=== PATIENT | male | born 1980 | race Caucasian/White ===

== ENCOUNTER 2017-02-13 09:17 | Inpatient (IN) | payer OTHER ==
[~2017-02-13] VITALS: Ht 177.8 cm; Wt 77.0 kg
[~2017-02-13 09:17] MED LIST: ALBU8I INH; FOLI1 PO; LITH300 PO; NICO14DI18 TD; THIA100T PO; ZYVO600T PO
[2017-02-13 09:25] VITALS: BP 138/82; PULSE 89; RESP 16; TEMP 99.8
[2017-02-13] MEDS ORDERED: SODIUM CHLORIDE 0.9% FLUSH 10 ML FLUSH IVF PRN (09:45)
[2017-02-13] MEDS ORDERED: CLINDAMYCIN INJ 600 MG in SODIUM CHLORIDE 0.9% INJ 100 ML IV ONE (09:45)
[2017-02-13 10:16] LABS: AUTOMATED NEUTROPHIL # 15.1 TH/MM3 (1.8-7.7); BASOPHIL # 0.1 TH/MM3 (0-0.2); BASOPHIL % 0.4 % (0.0-2.0); HEMATOCRIT 48.9 % (39.0-51.0); LYMPH % 5.8 % (9.0-44.0); LYMPHOCYTE # 1.1 TH/MM3 (1.0-4.8); MEAN CORPUSCULAR HEMOGLOBIN 31.5 PG (27.0-34.0); MONO % 12.9 % (0.0-8.0); NEUT % 80.9 % (16.0-70.0); PLATELET COUNT 224 TH/MM3 (150-450); RED BLOOD COUNT 5.43 MIL/MM3 (4.50-5.90); RED CELL DISTRIBUTION WIDTH 14.5 % (11.6-17.2); WHITE BLOOD COUNT 18.7 TH/MM3 (4.0-11.0)
[2017-02-13 10:17] LABS: HEMO FLAGS AUTO DIFF
[2017-02-13] MEDS ORDERED: ACETAMINOPHEN 325 MG TAB PO ONE (10:30)
[2017-02-13 10:38] VITALS: TEMP 100.2
[2017-02-13 10:39] LABS: BICARBONATE 22.4 MEQ/L (21.0-32.0); POTASSIUM 3.8 MEQ/L (3.5-5.1)
[2017-02-13 10:50] LABS: BANDS 15 % (0-6); BASOPHILS 1 % (0-2); NEUTROPHIL # MANUAL DIFF 15.3 TH/MM3 (1.8-7.7); PLATELET ESTIMATE SMEAR NORMAL (NORMAL); PLATELET MORPHOLOGY NORMAL (NORMAL); POLYS (SEG NEUTROPHILS) 67 % (16-70); SCAN/DIFF FINAL DIFF MANUAL; WBC DIFF SAMPLE 100
--- NOTE | 2017-02-13 10:51 | RADRPT ---
EXAM DATE/TIME: 02/13/2017 10:37 [facility] COMPARISON: No previous studies available for comparison. INDICATIONS : Right side rib pain from fall off of skateboard. MEDICAL HISTORY : None. SURGICAL HISTORY : None. ENCOUNTER: Initial ACUITY: 1 day PAIN SCORE: 8/10 LOCATION: Right Ribs FINDINGS: No definite displaced rib fractures or pneumothorax is identified. CONCLUSION: No definite displaced rib fractures. Rosa East MD on February 13, 2017 at 10:49 Board Certified Radiologist. This report was verified electronically.
--- NOTE | 2017-02-13 11:06 | PD ---
HPI . Fall Chief Complaint: Injury Time Seen by Provider: 09:43 Travel History International Travel<30 days: No Contact w/Intl Traveler<30days: No Traveled to known affect area: No History of Present Illness HPI Patient presents complaining with right elbow and right rib pain following a fall last night. He states that he fell off the skateboard at about 11 PM. Patient states that his elbow pain is aching and constant and rates it as 8/10. He states that his rib pain is intermittent and he rates it as 7/10. He reports no obvious exacerbating or relieving factors. In addition to his right rib pain and his right elbow pain, he is complaining with multiple draining sores. He states that he is homeless and is prone to staph infections. PFSH Past Medical History Hx Anticoagulant Therapy: No Asthma: Yes Bipolar Disorder: Yes Anxiety: Yes Depression: Yes Cancer: No Cardiovascular Problems: No Chemotherapy: No Cerebrovascular Accident: No Diabetes: No Diminished Hearing: No Endocrine: No Gastrointestinal Disorders: No Genitourinary: No Hepatitis: Yes (C) Immune Disorder: No Implanted Vascular Access Dvce: No Musculoskeletal: No Neurologic: No Psychiatric: Yes Reproductive: No Respiratory: Yes (smoker, denies asthma. Uses albuterol) Integumentary: Yes (cellulitis left elbow) Immunizations Current: Yes Migraines: No Seizures: No Tetanus Vaccination: Unknown Past Surgical History Abdominal Surgery: No Hysterectomy: No Other Surgery: No Social History Alcohol Use: No Tobacco Use: Yes Substance Use: Yes (pt shoots up. many track pineda on arms) Allergies-Medications (Allergen,Severity, Reaction): Coded Allergies: Toradol (Verified Adverse Reaction, Intermediate, HIVES, 04/18/16) Tramadol (Verified Adverse Reaction, Intermediate, HIVES, 04/18/16) *MDRO Multi-Drug Resistant Organism (Verified Adverse Reaction, Unknown, ) MRSA (back wound) - 06/2015 MRSA (leg wound) - 08/2015 MRSA (knee wound) - 03/2016 Reported Meds & Prescriptions Reported Meds & Active Scripts Active Review of Systems Except as stated in HPI: all other systems reviewed are Neg General / Constitutional: Positive: Fever, Chills Cardiovascular: Positive: Chest Pain or Discomfort Respiratory: No: Shortness of Breath Musculoskeletal: Positive: Arthralgias Skin: Positive Lesions Physical Exam Narrative Vital Signs Date Time Temp Pulse Resp B/P Pulse Ox O2 Delivery O2 Flow Rate FiO2 02/13/17 10:38 100.2 02/13/17 09:42 16 93 Room Air 02/13/17 09:25 99.8 89 16 138/82 GENERAL: Patient is awake and alert. SKIN: Warm and dry. Right elbow is erythematous and warm to the touch. There is some serous drainage. He has numerous other source scattered over his body. Most of them are scabbed. There is some purulent drainage oozing from under some of the scabs. HEAD: Atraumatic. Normocephalic. EYES: Pupils equal and round. Extraocular movements are intact. ENT: No nasal bleeding or discharge. Mucous membranes pink and moist. NECK: Trachea midline. Neck is supple. CARDIOVASCULAR: Regular rate and rhythm. Heart sounds are normal. RESPIRATORY: No accessory muscle use. Lungs are clear with full air movement throughout. He does have some anterior lateral chest wall tenderness. There is no crepitus. I don't see any bruises or abrasions on his chest all. GASTROINTESTINAL: Abdomen soft, non-tender, nondistended. MUSCULOSKELETAL: No obvious deformities. No edema. Tender right elbow. However, this seems to be more skin than joint. NEUROLOGICAL: Awake and alert. No obvious cranial nerve deficits. Motor grossly within normal limits. Normal speech. PSYCHIATRIC: Appropriate mood and affect; insight and judgment normal. Data Data Last Documented VS Vital Signs Date Time Temp Pulse Resp B/P Pulse Ox O2 Delivery O2 Flow Rate FiO2 02/13/17 10:38 100.2 02/13/17 09:42 16 93 Room Air 02/13/17 09:25 89 138/82 Orders Basic Metabolic Panel (Bmp) (02/13/17 09:43) Complete Blood Count With Diff (02/13/17 09:43) Blood Culture (02/13/17 09:43) Iv Access Insert/Monitor (02/13/17 09:43) Sodium Chloride 0.9% Flush (Ns Flush) (02/13/17 09:45) Clindamycin Inj (Cleocin Inj) (02/13/17 09:45) Ribs, Uni (W/Exp Cxr-Min 3vw) (02/13/17 09:43) Elbow, Complete (4 Vws) (02/13/17 09:43) Westergren Sedimentation Rate (02/13/17 09:43) C-Reactive Protein (Crp) (02/13/17 09:43) Acetaminophen (Tylenol) (02/13/17 10:30) Wound Culture And Gram Stain (02/13/17 10:59) Labs Laboratory Tests Test 02/13/17 10:04 White Blood Count 18.7 TH/MM3 Red Blood Count 5.43 MIL/MM3 Hemoglobin 17.1 GM/DL Hematocrit 48.9 % Mean Corpuscular Volume 90.0 FL Mean Corpuscular Hemoglobin 31.5 PG Mean Corpuscular Hemoglobin 35.0 % Concent Red Cell Distribution Width 14.5 % Platelet Count 224 TH/MM3 Mean Platelet Volume 8.7 FL Neutrophils (%) (Auto) 80.9 % Lymphocytes (%) (Auto) 5.8 % Monocytes (%) (Auto) 12.9 % Eosinophils (%) (Auto) 0.0 % Basophils (%) (Auto) 0.4 % Neutrophils # (Auto) 15.1 TH/MM3 Lymphocytes # (Auto) 1.1 TH/MM3 Monocytes # (Auto) 2.4 TH/MM3 Eosinophils # (Auto) 0.0 TH/MM3 Basophils # (Auto) 0.1 TH/MM3 CBC Comment AUTO DIFF Differential Total Cells 100 Counted Neutrophils % (Manual) 67 % Band Neutrophils % 15 % Lymphocytes % 6 % Monocytes % 11 % Basophils % 1 % Neutrophils # (Manual) 15.3 TH/MM3 Differential Comment FINAL DIFF MANUAL Atypical Lymphocytes % Platelet Estimate NORMAL Platelet Morphology Comment NORMAL Red Cell Morphology Comment NORMAL Erythrocyte Sedimentation Rate 5 mm/hr Sodium Level 132 MEQ/L Potassium Level 3.8 MEQ/L Chloride Level 98 MEQ/L Carbon Dioxide Level 22.4 MEQ/L Anion Gap 12 MEQ/L Blood Urea Nitrogen 6 MG/DL Creatinine 0.72 MG/DL Estimat Glomerular Filtration 123 ML/MIN Rate Random Glucose 115 MG/DL Calcium Level 9.2 MG/DL C-Reactive Protein 11.30 MG/DL [facility] Medical Decision Making Medical Screen Exam Complete: Yes Emergency Medical Condition: Yes Medical Record Reviewed: Yes (several previous presentations for staph skin infections.) Differential Diagnosis Differential diagnosis of chest trauma includes but is not limited to pneumothorax, rib fracture, rib contusion, T or L-spine fracture, soft tissue contusion. My differential diagnosis includes but is not limited to localized wound infection, cellulitis, abscess Narrative Course Patient presents stating that he injured his right elbow skateboarding last night. His exam does not correspond to this complaint. He does have cellulitis of his elbow and has multiple other skin lesions are draining purulent fluid. CBC & BMP Diagram 02/13/17 10:04 The differential shows 15% bands. ESR is 5. CRP is 11.3. Rib series is negative. Right elbow x-ray is negative to my interpretation. This patient has cellulitis of his right elbow with leukocytosis and bandemia. He is also running a low-grade fever. He is homeless. He needs to be admitted at least to 23 hour observation for IV antibiotics. Sepsis Criteria SIRS Criteria (2 or more): WBC > 62733, < 4000 or > 10% bands Sepsis Criteria (SIRS+source): Infect source susp/known Diagnosis Primary Impression: Cellulitis Qualified Code: L03.113 - Cellulitis of right upper extremity Admitting Information Admitting Physician Requests: Observation Condition: Stable Leonarda Martinez MD Feb 13, 2017 11:06 Leonarda Martinez MD Feb 13, 2017 11:06
--- NOTE | 2017-02-13 11:20 | RADRPT ---
EXAM DATE/TIME: 02/13/2017 10:29 [facility] COMPARISON: No previous studies available for comparison. INDICATIONS : Right elbow pain after fall off of skateboard. MEDICAL HISTORY : None. SURGICAL HISTORY : None. ENCOUNTER: Initial ACUITY: 1 day PAIN SCORE: 8/10 LOCATION: Right Elbow FINDINGS: No definite fractures, or dislocations are identified. No definite lytic or sclerotic lesion is seen . Soft tissue swelling is identified. CONCLUSION: Soft tissue swelling and no definite fracture for kush. Rosa East MD on February 13, 2017 at 11:11 Board Certified Radiologist. This report was verified electronically.
[2017-02-13 12:00] VITALS: BP 128/78; PULSE 98; RESP 16; TEMP 98.7; O2SAT 92
[2017-02-13] MEDS ORDERED: Vancomycin Consult Pharmacy 1 EA OTHER SCH (12:00)
[2017-02-13] MEDS ORDERED: ACETAMINOPHEN/HYDROcodone 325 MG/5 MG TAB PO PRN (12:00)
[2017-02-13] MEDS ORDERED: ACETAMINOPHEN 500 MG CPLT PO PRN (12:00)
--- NOTE | 2017-02-13 12:08 | HHI.HP ---
HPI Service Family Medicine Primary Care Physician No Primary Care Physician Admission Diagnosis cellulitis Diagnoses: International Travel<30 Days: No Contact w/Intl Traveler<30days: No Known Affected Area: No History of Present Illness Mr. Lacy is a 36 y/o M with a PMHx of bipolar disorder, PTSD, and hepatitis C per chart review presenting to the ER s/p skateboard fall. He states last night around 5PM he fell of his skateboard on the the concrete after losing his balance. He denies any LOC and does remember the event. He fell onto his R side with his elbow striking the ground and his skateboard hitting his R chest. He felt a "pop" in his elbow which immediately became painful along with his R chest. His elbow began to have minor bleeding that resolved with pressure he applied with gauze. However, his elbow began draining mucopurulent fluid overnight so he decided to come to the hospital. Of note he has been previously treated for a septic L elbow joint in 2014 along with multiple other skin infections. Otherwise he has no complaints. [facility] was [facility], but has not been recently due to transportation issues. (Kiran Hill MD R1) Review of Systems Constitutional: COMPLAINS OF: Fever (1 day), Chills Eyes: DENIES: Blurred vision Ears, nose, mouth, throat: DENIES: Throat pain Respiratory: COMPLAINS OF: Cough (2 weeks), DENIES: Shortness of breath Cardiovascular: COMPLAINS OF: Chest pain (R side skateboard related), DENIES: Palpitations Gastrointestinal: DENIES: Abdominal pain, Diarrhea, Nausea, Vomiting Genitourinary: DENIES: Dysuria Musculoskeletal: COMPLAINS OF: Joint pain (R elbow) Integumentary: DENIES: Rash Hematologic/lymphatic: DENIES: Lymphadenopathy Immunologic/allergic: DENIES: Urticaria Neurologic: DENIES: Headache (Kiran Hill MD R1) Past Family Social History Past Medical History Denies PMHx Per chart review from Dr. Holder's chart notes: Bipolar disorder previously on [place] PTSD Hepatitis C Past Surgical History L elbow joint clean out with drain placement 2014 L 5th digit repair as a child Reported Medications None (Kiran Hill MD R1) Allergies: Coded Allergies: Toradol (Verified Adverse Reaction, Intermediate, HIVES, 04/18/16) Tramadol (Verified Adverse Reaction, Intermediate, HIVES, 04/18/16) *MDRO Multi-Drug Resistant Organism (Verified Adverse Reaction, Unknown, ) MRSA (back wound) - 06/2015 MRSA (leg wound) - 08/2015 MRSA (knee wound) - 03/2016 Family History Father - HTN Denies any other FMHx Social History Currently homeless and unemployed. Previously seen by Dr. Holder, but has not been seen recently due to transportation issue. Smoke: 1/2 ppd for 3 years Alcohol: Occasional, last use 2 years ago Illicit: Denies illicit drugs Full code (Kiran Hill MD R1) Physical Exam Vital Signs Vital Signs Date Time Temp Pulse Resp B/P Pulse Ox O2 Delivery O2 Flow Rate FiO2 02/13/17 10:38 100.2 02/13/17 09:42 16 93 Room Air 02/13/17 09:25 99.8 89 16 138/82 Physical Exam GENERAL: WN, WD 36 y/o M lying in bed in mild distress from pain SKIN: Warm and dry. Sun tanned with multiple areas of sun carpio. See below for extremity findings. HEENT: AT, NC with EOMI. PERRLA. Oropharynx clear without exudate and erythema. No LAD or rhinorrhea. Small 1cm area of skin trauma on R ear from fall. CARDIOVASCULAR: Regular rate and rhythm without murmurs, gallops, or rubs. RESPIRATORY: CTAB with no CRW. No increased WOB. GASTROINTESTINAL: Abdomen soft, non-tender, nondistended with +BS. No masses appreciated. MUSCULOSKELETAL: No cyanosis or BL calf tenderness. 2+ pulses in all 4 extremities. RUE: Visible swelling of the L elbow with erythema. Circular eschar from prior wound with surrounding circular erythema on the posterior elbow measuring 14.5x8cm. 2 areas of drainage with weeping mucopurulent fluid. One small area of skin trauma with well appearing granulation tissue currently not bleeding. Elbow flexion and extension mildly reduced due to pain by approximately 10 degrees. Pain with supination and pronation of the LUE. L shoulder, wrist, and all digits are WNL. No axillary LAD appreciated. 2+ radial pulse with appropriate capillary refill. LLE: 2 areas of erythematous, circular/elliptical areas surrounding eschars outlined with the most proximal measuring 7.5x4.5cm and the other 7cmx3.5cm. No other deformities of the LLE. ROM, strength, and sensation intact and WNL. NEUROLOGICAL: AAOx3. Normal speech and judgement. Appropriate interaction with examiners. Laboratory Laboratory Tests Test 02/13/17 10:04 White Blood Count 18.7 Red Blood Count 5.43 Hemoglobin 17.1 Hematocrit 48.9 Mean Corpuscular Volume 90.0 Mean Corpuscular Hemoglobin 31.5 Mean Corpuscular Hemoglobin 35.0 Concent Red Cell Distribution Width 14.5 Platelet Count 224 Mean Platelet Volume 8.7 Neutrophils (%) (Auto) 80.9 Lymphocytes (%) (Auto) 5.8 Monocytes (%) (Auto) 12.9 Eosinophils (%) (Auto) 0.0 Basophils (%) (Auto) 0.4 Neutrophils # (Auto) 15.1 Lymphocytes # (Auto) 1.1 Monocytes # (Auto) 2.4 Eosinophils # (Auto) 0.0 Basophils # (Auto) 0.1 CBC Comment AUTO DIFF Differential Total Cells 100 Counted Neutrophils % (Manual) 67 Band Neutrophils % 15 Lymphocytes % 6 Monocytes % 11 Basophils % 1 Neutrophils # (Manual) 15.3 Differential Comment FINAL DIFF MANUAL Atypical Lymphocytes Platelet Estimate NORMAL Platelet Morphology Comment NORMAL Red Cell Morphology Comment NORMAL Erythrocyte Sedimentation Rate 5 Sodium Level 132 Potassium Level 3.8 Chloride Level 98 Carbon Dioxide Level 22.4 Anion Gap 12 Blood Urea Nitrogen 6 Creatinine 0.72 Estimat Glomerular Filtration 123 Rate Random Glucose 115 Calcium Level 9.2 C-Reactive Protein 11.30 Date/Time Procedure Status Source Growth 02/13/17 11:00 Gram Stain Received Wound Elbow Pending 02/13/17 11:00 Wound Culture Received Wound Elbow Pending 02/13/17 10:12 Aerobic Blood Culture Received Blood Peripheral Pending 02/13/17 10:12 Anaerobic Blood Culture Received Blood Peripheral Pending (Kiran Hill MD R1) Result Diagram: 02/13/17 1004 02/13/17 1004 Imaging Last 72 hours Impressions Ribs X-Ray 02/13/17 0943 Signed Impressions: Service Date/Time: January 10:37 - CONCLUSION: No definite displaced rib fractures. KJack East MD Elbow X-Ray 02/13/1743 Signed Impressions: Service Date/Time: Thursday, February 13, 2017 10:29 - CONCLUSION: Soft tissue swelling and no definite fracture for technique. Rosa East MD (Kiran Hill MD R1) Assessment and Plan Assessment and Plan Mr. Lacy is a 36 y/o M with a PMHx of bipolar disorder, PTSD, and hepatitis C per chart review presenting to the ER s/p skateboard fall with cellulitis of the LUE. Code Status FULL Discussed Condition With Dr. Martinez, ER physician Dr. Kylah Houston (Kiran Hill MD R1) Attending Attestation THIS CASE WAS DISCUSSED WITH THE RESIDENT PHYSICIANS. I HAVE REVIEWED THE RECORD AND AGREE WITH THE ABOVE NOTE AND PLAN OF CARE WAS DISCUSSED. I HAVE AUTHORIZED THE ORDER FOR ADMISSION TO AN IN-PATIENT STATUS. (Gage Montero MD) Problem List: (1) Cellulitis of right upper extremity Status: Acute Plan: Patient presenting s/p skateboard fall with cellulitis of the RUE. Patient with multiple previous hospitalizations for cellulitis including MRSA cellulitis. Area of erythema on RUE and LLE outlined for future evaluation. Due to patient's exam and extensive history, Medical team will order MRI for further evaluation of possible septic joint and Orthopedic consultation if necessary. -LUE x-ray: -MRI LUE: Pending -CBC: WBC 18.7 with 80.9% neutrophils -CRP: 11.3 -ESR: 5 -Wound culture: Pending -BC x2 02/13: Pending -Consult infectious disease, appreciate recommendations Medications: -Clindamycin given in ER -Vancomycin -Zosyn 3.375g Q6H -Howes 5mg for pain 1-5, 10mg for pain 6-10, Morphine 2mg Q3H for breakthrough pain (2) Hepatitis C Status: Chronic Plan: Patient with Hepatitis C per chart review (3) Co-occurrence of multiple psychiatric disorders Status: Acute Plan: Patient with PTSD and Bipolar disorder per chart review. Patient previously on [place]. Currently he has not been taking his [place] as he has been unable to follow up with his PCP. Medical team will defer starting [place] as patient has appropriate behavior and mood. -[place] level: Pending -Drug Screen: Pending -Alcohol level: Pending -CIWA protocol (4) Nutrition, metabolism, and development symptoms Status: Acute Plan: Fluids: None as patient is not septic and tolerating PO fluids Diet: Regular diet as tolerated Electrolytes: Hyponatremic, continue to monitor DVT: Lovenox daily Prophylaxis: Tylenol PRN for fever, Zofran PRN for N/V, Clonidine PRN for HTN (Kiran Hill MD R1) Problem Qualifiers (1) Hepatitis C: Qualified Code: B18.2 - Chronic hepatitis C without hepatic coma Kiran Hill MD R1 Feb 13, 2017 12:08 Gage Montero MD Feb 13, 2017 14:40
[2017-02-13] MEDS ORDERED: ONDANSETRON HCL 4 MG/2 ML VIAL IVP PRN (12:15)
[2017-02-13] MEDS ORDERED: LORazepam 1 MG TAB PO PRN (12:15)
[2017-02-13] MEDS ORDERED: FLUMAZENIL 0.5 MG/5 ML VIAL IV PUSH PRN (12:15)
[2017-02-13] MEDS ORDERED: LORazepam 2 MG/ML VIAL IV PUSH PRN ×4 (12:15)
[2017-02-13] MEDS ORDERED: cloNIDine HCL 0.1 MG TAB PO PRN (12:15)
[2017-02-13] MEDS ORDERED: BISACODYL 10 MG SUPP RECTAL PRN (12:15)
[2017-02-13] MEDS ORDERED: LORazepam 2 MG TAB PO PRN (12:15)
[2017-02-13] MEDS ORDERED: NALOXONE HCL 0.4 MG/ML AMP IV PRN (12:15)
[2017-02-13] MEDS ORDERED: VANCOMYCIN INJ 1,000 MG in SODIUM CHLOR 0.9% 250 ML INJ 250 ML IV SCH (13:00)
[2017-02-13] MEDS: SODIUM CHLOR 0.9% 1000 ML INJ 1,000 ML IV SCH ×2 (13:18→20:20)
[2017-02-13] MEDS: ENOXAPARIN SODIUM 40 MG/0.4 ML SYRINGE SQ SCH (13:18)
[2017-02-13] MEDS: ACETAMINOPHEN/HYDROcodone 325 MG/7.5 MG TAB PO PRN ×3 (13:57→22:36)
[2017-02-13] MEDS: PIPERACIL-TAZO 3.375 GM PREMIX 50 ML IV SCH ×2 (13:58→20:20)
[2017-02-13 14:30] VITALS: BP 124/78; PULSE 99; RESP 16; TEMP 100; O2SAT 93
--- NOTE | 2017-02-13 14:34 | HHI.HP ---
[facility] Service Family Medicine Primary Care Physician No Primary Care Physician Admission Diagnosis cellulitis Diagnoses: (1) Cellulitis of right upper extremity (2) Hepatitis C (3) Co-occurrence of multiple psychiatric disorders (4) Nutrition, metabolism, and development symptoms International Travel<30 Days: No Contact w/Intl Traveler<30days: No Known Affected Area: No History of Present Illness 36-year-old male with several previous hospitalizations for abscesses and cellulitis presents to the emergency department with a red, swollen right elbow that is draining purulent material after a fall from a skateboard last night. He states that he was on his skateboard yesterday evening at approximately 5 PM when he "tripped and fell" scraping his elbow and hitting his ribs on the right side. He had some bleeding from the right elbow and soreness of the right ribs but was able to walk away from the fall. He woke up this morning with a significantly swollen and painful right elbow that was draining purulent material that had soaked through his sweatshirt. He was unable to straighten the elbow and subjectively felt chills and therefore presented to the emergency department. He has history of multiple skin infections including a prepatellar abscess that required interventional radiology drainage with subsequent culture of the fluid growing MRSA. He has several other areas of abrasions and skin wounds/scabs on his upper and lower extremities in various stages of healing that he states have become a bit more swollen and red/erythematous overnight. Review of Systems Constitutional: COMPLAINS OF: Fever, Chills Respiratory: COMPLAINS OF: Cough Cardiovascular: DENIES: Chest pain, Palpitations Musculoskeletal: COMPLAINS OF: Joint pain, Joint Swelling Past Family Social History Past Medical History Denies PMHx Per chart review from Dr. Holder's chart notes: Bipolar disorder previously on [place] PTSD Hepatitis C Past Surgical History L elbow joint clean out with drain placement 2014 L 5th digit repair as a child Allergies: Coded Allergies: Toradol (Verified Adverse Reaction, Intermediate, HIVES, 04/18/16) Tramadol (Verified Adverse Reaction, Intermediate, HIVES, 04/18/16) *MDRO Multi-Drug Resistant Organism (Verified Adverse Reaction, Unknown, ) MRSA (back wound) - 06/2015 MRSA (leg wound) - 08/2015 MRSA (knee wound) - 03/2016 Family History Father - HTN Denies any other FMHx Social History Currently homeless and unemployed. Previously seen by Dr. Holder, but has not been seen recently due to transportation issue. Smoke: 1/2 ppd for 3 years Alcohol: Occasional, last use 2 years ago Illicit: Denies illicit drugs Full code Physical Exam Vital Signs Vital Signs Date Time Temp Pulse Resp B/P Pulse Ox O2 Delivery O2 Flow Rate FiO2 02/13/17 12:00 98.7 98 16 128/78 92 Room Air 02/13/17 10:38 100.2 02/13/17 09:42 16 93 Room Air 02/13/17 09:25 99.8 89 16 138/82 Physical Exam GENERAL: WN, WD 36 y/o M lying in bed in mild distress from pain SKIN: Warm and dry. Sun tanned with multiple areas of sun carpio. See below for extremity findings. HEENT: AT, NC with EOMI. PERRLA. Oropharynx clear without exudate and erythema. No LAD or rhinorrhea. Small 1cm area of skin trauma on R ear from fall. CARDIOVASCULAR: Regular rate and rhythm without murmurs, gallops, or rubs. RESPIRATORY: CTAB with no CRW. No increased WOB. GASTROINTESTINAL: Abdomen soft, non-tender, nondistended with +BS. No masses appreciated. MUSCULOSKELETAL: No cyanosis or BL calf tenderness. 2+ pulses in all 4 extremities. RUE: Visible swelling of the R elbow with erythema. Circular eschar from prior wound with surrounding circular erythema on the posterior elbow measuring 14.5x8cm. 2 areas of drainage with weeping mucopurulent fluid. One small area of skin trauma with well appearing granulation tissue currently not bleeding. Elbow flexion and extension mildly reduced due to pain by approximately 10 degrees. Pain with supination and pronation of the LUE. L shoulder, wrist, and all digits are WNL. No axillary LAD appreciated. 2+ radial pulse with appropriate capillary refill. LLE: 2 areas of erythematous, circular/elliptical areas surrounding eschars outlined with the most proximal measuring 7.5x4.5cm and the other 7cmx3.5cm. No other deformities of the LLE. ROM, strength, and sensation intact and WNL. NEUROLOGICAL: AAOx3. Normal speech and judgement. Appropriate interaction with examiners. Laboratory Laboratory Tests Test 02/13/17 10:04 White Blood Count 18.7 Red Blood Count 5.43 Hemoglobin 17.1 Hematocrit 48.9 Mean Corpuscular Volume 90.0 Mean Corpuscular Hemoglobin 31.5 Mean Corpuscular Hemoglobin 35.0 Concent Red Cell Distribution Width 14.5 Platelet Count 224 Mean Platelet Volume 8.7 Neutrophils (%) (Auto) 80.9 Lymphocytes (%) (Auto) 5.8 Monocytes (%) (Auto) 12.9 Eosinophils (%) (Auto) 0.0 Basophils (%) (Auto) 0.4 Neutrophils # (Auto) 15.1 Lymphocytes # (Auto) 1.1 Monocytes # (Auto) 2.4 Eosinophils # (Auto) 0.0 Basophils # (Auto) 0.1 CBC Comment AUTO DIFF Differential Total Cells 100 Counted Neutrophils % (Manual) 67 Band Neutrophils % 15 Lymphocytes % 6 Monocytes % 11 Basophils % 1 Neutrophils # (Manual) 15.3 Differential Comment FINAL DIFF MANUAL Atypical Lymphocytes Platelet Estimate NORMAL Platelet Morphology Comment NORMAL Red Cell Morphology Comment NORMAL Erythrocyte Sedimentation Rate 5 Sodium Level 132 Potassium Level 3.8 Chloride Level 98 Carbon Dioxide Level 22.4 Anion Gap 12 Blood Urea Nitrogen 6 Creatinine 0.72 Estimat Glomerular Filtration 123 Rate Random Glucose 115 Calcium Level 9.2 C-Reactive Protein 11.30 Date/Time Procedure Status Source Growth 02/13/17 11:00 Gram Stain Received Wound Elbow Pending 02/13/17 11:00 Wound Culture Received Wound Elbow Pending 02/13/17 10:12 Aerobic Blood Culture Received Blood Peripheral Pending 02/13/17 10:12 Anaerobic Blood Culture Received Blood Peripheral Pending Result Diagram: 02/13/17 1004 02/13/17 1004 Imaging Last 72 hours Impressions Ribs X-Ray 02/13/17942 Signed Impressions: Service Date/Time: January 10:37 - CONCLUSION: No definite displaced rib fractures. Rosa East MD Elbow X-Ray 02/13/17942 Signed Impressions: Service Date/Time: January 10:29 - CONCLUSION: Soft tissue swelling and no definite fracture for technique. Rosa East MD Assessment and Plan Assessment and Plan Mr. Lacy is a 36 y/o M with a PMHx of bipolar disorder, PTSD, and hepatitis C per chart review presenting to the ER s/p skateboard fall with cellulitis of the LUE. Problem List: (1) Cellulitis of right upper extremity Status: Acute Plan: Cellulitis draining purulent material +/- joint involvement - Patient has a history of MRSA abscess near his knee -MRI of the left elbow ordered to evaluate for septic joint or suggested osteomyelitis -CBC: WBC 18.7 with 80.9% neutrophils -CRP: 11.3 -ESR: 5 -Wound culture: Pending -BC x2 02/13: Pending -Consult infectious disease, appreciate recommendations Medications - broad-spectrum antibiotics started as below and infectious disease consulted this patient has had multiple infections similar to this in the past: - Vancomycin - Zosyn 3.375g Q6H - Received IV clindamycin 1 in the emergency department - Previous aspirate from 03/2016 shows MRSA resistant to clindamycin Pain control with [place] 5mg for pain 1-5, 10mg for pain 6-10, Morphine 2mg Q3H for breakthrough pain (2) Hepatitis C Status: Chronic Plan: Patient with Hepatitis C per chart review - Obtain viral load and genotype - We'll discuss with patient possible GI evaluation (3) Co-occurrence of multiple psychiatric disorders Status: Acute Plan: Patient with PTSD and Bipolar disorder per chart review. Patient previously on [place]. Currently he has not been taking his [place] as he has been unable to follow up with his PCP. Medical team will defer starting [place] as patient has appropriate behavior and mood. -[place] level: Pending -Drug Screen: Pending -Alcohol level: Pending -[facility] protocol (4) Nutrition, metabolism, and development symptoms Status: Acute Plan: Fluids: None as patient is not septic and tolerating PO fluids Diet: Regular diet as tolerated Electrolytes: Hyponatremic, continue to monitor DVT: Lovenox daily Prophylaxis: Tylenol PRN for fever, Zofran PRN for N/V, Clonidine PRN for HTN Physician Certification 2 Midnight Certification Type: Admission for Inpatient Services Order for Inpatient Services The services are ordered in accordance with Medicare regulations or non- Medicare payer requirements, as applicable. In the case of services not specified as inpatient-only, they are appropriately provided as inpatient services in accordance with the 2-midnight benchmark. Estimated LOS (days): 2 2 days is the estimated time the patient will need to remain in the hospital, assuming treatment plan goals are met and no additional complications. Post-Hospital Plan: Not yet determined Problem Qualifiers (1) Hepatitis C: Qualified Code: B18.2 - Chronic hepatitis C without hepatic coma Gage Montero MD Feb 13, 2017 14:34
[2017-02-13] MEDS ORDERED: GADODIAMIDE PF 287 MG/ML 5 ML VIAL (for RAD MRI) IV ONE (15:25)
--- NOTE | 2017-02-13 15:44 | RADRPT ---
EXAM DATE/TIME: 02/13/2017 14:55 [place] COMPARISON: ELBOW RIGHT COMPLETE (4 VWS), February 13, 2017, 10:29. INDICATIONS : Right elbow pain. CONTRAST: 15 cc Omniscan (gadodiamide) IV MEDICAL HISTORY : None. SURGICAL HISTORY : Rt finger surgery ENCOUNTER: Initial ACUITY: 1 day PAIN SCORE: 3/10 LOCATION: Right elbow TECHNIQUE: Multiplanar, multisequence MRI examination was performed without contrast and after the intravenous a dministration of gadolinium. FINDINGS: The marrow signal appears intact. There is a small joint effusion and there is moderate amount o f subcutaneous edema particularly dorsally behind the olecranon. The visualized musculotendinous stru ctures appear intact. CONCLUSION: Small joint effusion and subcutaneous edema. Rosa East MD on February 13, 2017 at 15:36 Board Certified Radiologist. This report was verified electronically.
[2017-02-13 16:00] VITALS: BP 129/85; PULSE 89; RESP 18; TEMP 98.7; O2SAT 94
[2017-02-13] MEDS: MORPHINE SULFATE 4 MG/ML INJ IV PUSH PRN ×2 (16:37→20:22)
[2017-02-13] MEDS: VANCOMYCIN INJ 1,500 MG in SODIUM CHLORID 0.9% 500 ML INJ 500 ML IV SCH (17:09)
[2017-02-13 20:00] VITALS: BP 125/74; PULSE 98; RESP 17; TEMP 100.7; O2SAT 94
[2017-02-13] MEDS: SODIUM CHLORIDE 0.9% FLUSH 10 ML FLUSH IV FLUSH SCH (20:22)
[2017-02-14] VITALS: BP 129/81; PULSE 88; RESP 17; TEMP 100.4; O2SAT 96
[2017-02-14] MEDS: MORPHINE SULFATE 4 MG/ML INJ IV PUSH PRN ×6 (00:16→23:02)
[2017-02-14] MEDS: SODIUM CHLOR 0.9% 1000 ML INJ 1,000 ML IV SCH ×2 (00:17→13:00)
[2017-02-14] MEDS: PIPERACIL-TAZO 3.375 GM PREMIX 50 ML IV SCH ×3 (01:03→13:26)
[2017-02-14] MEDS: VANCOMYCIN INJ 1,500 MG in SODIUM CHLORID 0.9% 500 ML INJ 500 ML IV SCH ×2 (04:03→16:52)
[2017-02-14] MEDS: ACETAMINOPHEN/HYDROcodone 325 MG/7.5 MG TAB PO PRN ×2 (04:05→09:52)
[2017-02-14 05:43] LABS: AUTOMATED NEUTROPHIL # 12.4 TH/MM3 (1.8-7.7); BASOPHIL # 0.1 TH/MM3 (0-0.2); BASOPHIL % 0.8 % (0.0-2.0); EOSINOPHIL # 0.1 TH/MM3 (0-0.4); EOSINOPHIL % 0.5 % (0.0-4.0); HEMATOCRIT 45.3 % (39.0-51.0); HEMO FLAGS DIFF FINAL; LYMPH % 9.3 % (9.0-44.0); LYMPHOCYTE # 1.4 TH/MM3 (1.0-4.8); MEAN CELL VOLUME 91.4 FL (80.0-100.0); MEAN CORPUSCULAR HEMOGLOBIN 30.5 PG (27.0-34.0); MEAN CORPUSCULAR HGB CONC 33.4 % (32.0-36.0); MONO % 9.7 % (0.0-8.0); NEUT % 79.7 % (16.0-70.0); PLATELET COUNT 168 TH/MM3 (150-450); RED BLOOD COUNT 4.96 MIL/MM3 (4.50-5.90); RED CELL DISTRIBUTION WIDTH 14.8 % (11.6-17.2); WHITE BLOOD COUNT 15.5 TH/MM3 (4.0-11.0)
[2017-02-14 06:13] LABS: BICARBONATE 26.4 MEQ/L (21.0-32.0); POTASSIUM 3.5 MEQ/L (3.5-5.1)
[2017-02-14] MEDS: SODIUM CHLORIDE 0.9% FLUSH 10 ML FLUSH IV FLUSH SCH ×2 (07:49→21:00)
[2017-02-14 08:00] VITALS: BP 132/76; PULSE 81; RESP 17; TEMP 98.5; O2SAT 94
--- NOTE | 2017-02-14 10:11 | PD.ID.CON ---
History of Present Illness Service ID Consult Requested By . Reason for Consult Evaluation and Mment of Right elbow cellulitis or bursitis. Primary Care Physician No Primary Care Physician Diagnoses: History of Present Illness is a 36 y/o CF with PMHx of multiple hospitalizations for abscesses, cellulitis. ? septic arthritis. He presents to the ED with a red, swollen right elbow that is draining purulent material after a fall from a skateboard last night. He states that he was on his skateboard yesterday evening at approximately 5 PM when he "tripped and fell" scraping his elbow and hitting his ribs on the right side. He had some bleeding from the right elbow and soreness of the right ribs but was able to walk away from the fall. He woke up this morning with a significantly swollen and painful right elbow that was draining purulent material that had soaked through his sweatshirt. He was unable to straighten the elbow and subjectively felt chills and therefore presented to the emergency department. Patient is not a reliable historian. He has history of multiple skin infections including a prepatellar abscess that required interventional radiology drainage with subsequent culture of the fluid growing MRSA. He has several other areas of abrasions and skin wounds/scabs on his upper and lower extremities in various stages of healing that he states have become a bit more swollen and red/erythematous overnight. Patient had just returned from IR. Apparently IR did not do percutaneous drain as he has multiple abrasions over the joint skin and there is a concern of introducing infection in joint as reported to me by primary team. Review of Systems ROS Limitations: Poor Historian Constitutional: COMPLAINS OF: Fever, Chills, DENIES: Diaphoretic episodes, Fatigue, Weight gain, Weight loss, Dizziness, Change in appetite, Night Sweats Endocrine: DENIES: Heat/cold intolerance, Polydipsia, Polyuria, Polyphagia Eyes: DENIES: Blurred vision, Diplopia, Eye inflammation, Eye pain, Vision loss , Photosensitivity, Double Vision Ears, nose, mouth, throat: DENIES: Tinnitus, Hearing loss, Vertigo, Nasal discharge, Oral lesions, Throat pain, Hoarseness, Ear Pain, Running Nose, Epistaxis, Sinus Pain, Toothache, Odynophagia Respiratory: DENIES: Apneas, Cough, Snoring, Wheezing, Hemoptysis, Sputum production, Shortness of breath Cardiovascular: DENIES: Chest pain, Palpitations, Syncope, Dyspnea on Exertion , PND, Lower Extremity Edema, Orthopnea, Claudication Gastrointestinal: DENIES: Abdominal pain, Black stools, Bloody stools, Constipation, Diarrhea, Nausea, Vomiting, Difficulty Swallowing, Anorexia Genitourinary: DENIES: Sexual dysfunction, Urinary frequency, Urinary incontinence, Urgency, Hematuria, Dysuria, Nocturia, Penile Discharge, Testicular Pain, Testicular Swelling Musculoskeletal: COMPLAINS OF: Joint pain, Joint Swelling, DENIES: Muscle aches, Stiffness, Back pain, Neck pain Integumentary: DENIES: Abnormal pigmentation, Nail changes, Pruritus, Rash Hematologic/lymphatic: COMPLAINS OF: Bruising, DENIES: Lymphadenopathy Immunologic/allergic: DENIES: Eczema, Urticaria Neurologic: DENIES: Abnormal gait, Headache, Localized weakness, Paresthesias, Seizures, Speech Problems, Tremor, Poor Balance Psychiatric: DENIES: Anxiety, Confusion, Mood changes, Depression, Hallucinations, Agitation, Suicidal Ideation, Homicidal Ideation, Delusions Except as stated in HPI: all other systems reviewed are Neg Past Family Social History Allergies: Coded Allergies: Toradol (Verified Adverse Reaction, Intermediate, HIVES, 04/18/16) Tramadol (Verified Adverse Reaction, Intermediate, HIVES, 04/18/16) *MDRO Multi-Drug Resistant Organism (Verified Adverse Reaction, Unknown, ) MRSA (back wound) - 06/2015 MRSA (leg wound) - 08/2015 MRSA (knee wound) - 03/2016 Past Medical History Bipolar disorder previously on [place] PTSD Hepatitis C Past Surgical History L elbow joint clean out with drain placement 2014 L 5th digit repair as a child Reported Medications Reported Meds & Active Scripts Active None per records. Active Ordered Medications Current Medications Medications (Trade) Dose Ordered Sig/Lex Route Start Time Stop Time Status Last Admin (NS Flush) 2 ml BID IV FLUSH 02/13/17 21:00 02/13/17 20:22 Sodium Chloride 2 ml 2 ml UNSCH PRN IV FLUSH 02/13/17 12:00 Sodium Chloride 1,000 ml @ 120 mls/hr Q8H20M IV 02/13/17 12:00 02/14/17 00:17 (Vancomycin Consult Pharmacy) 0 ml @ 0 mls/hr UNSCH OTHER 02/13/17 12:00 (Tylenol) 500 mg Q4H PRN PO 02/13/17 12:00 ([place] 5-325 Mg) 1 tab Q4H PRN PO 02/13/17 12:00 ([place] 7.5-325 Mg) 1 tab Q4H PRN PO 02/13/17 12:00 02/14/17 09:52 (Lovenox Inj) 40 mg Q24H SQ 02/13/17 13:00 02/13/17 13:18 (Zofran Inj) 4 mg Q6H PRN IVP 02/13/17 12:15 (Dulcolax Supp) 10 mg DAILY PRN RECTAL 02/13/17 12:15 (Narcan Inj) 0.4 mg UNSCH PRN IV 02/13/17 12:15 (Romazicon Inj) 0.2 mg Q1M PRN IV PUSH 02/13/17 12:15 (Ativan) 1 mg Q4H PRN PO 02/13/17 12:15 (Ativan Inj) 1 mg Q4H PRN IV PUSH 02/13/17 12:15 (Ativan) 2 mg Q2H PRN PO 02/13/17 12:15 (Ativan Inj) 2 mg Q2H PRN IV PUSH 02/13/17 12:15 (Ativan Inj) 2 mg Q1H PRN IV PUSH 02/13/17 12:15 (Ativan Inj) 2 mg Q15M PRN IV PUSH 02/13/17 12:15 Morphine Sulfate 2 mg 2 mg Q3H PRN IV PUSH 02/13/17 12:15 02/14/17 07:59 Piperacillin Sod/ Tazobactam Sod 50 ml @ 100 mls/hr Q6H IV 02/13/17 14:00 02/14/17 07:50 (Vancomycin Inj/ NS 500 ml Inj) 515 ml @ 250 mls/hr Q12H IV 02/13/17 15:00 02/14/17 04:03 Miscellaneous Information SPECIFIC LAB TO BE DRAWN:VANCOMYCIN TROUGH DATE TO... ONCE ONCE .XX 02/15/17 02:45 02/15/17 02:46 Family History Father - HTN Denies any other FMHx Social History Currently homeless and unemployed. Previously seen by Dr. Holder, but has not been seen recently due to transportation issue. Smoke: 1/2 ppd for 3 years Alcohol: Occasional, last use 2 years ago Illicit: Denies illicit drugs Full code Physical Exam Vital Signs Vital Signs Date Time Temp Pulse Resp B/P Pulse Ox O2 Delivery O2 Flow Rate FiO2 02/14/17 08:00 98.5 81 17 132/76 94 02/14/17 00:00 100.4 88 17 129/81 96 02/13/17 20:00 100.7 98 17 125/74 94 02/13/17 16:00 98.7 89 18 129/85 94 02/13/17 14:30 100.0 99 16 124/78 93 Room Air 02/13/17 12:00 98.7 98 16 128/78 92 Room Air 02/13/17 10:38 100.2 Physical Exam GENERAL: This is a well-nourished, well-developed patient, in no apparent distress. SKIN: No rashes, ecchymoses or lesions. Cool and dry. HEAD: Atraumatic. Normocephalic. No temporal or scalp tenderness. EYES: Pupils equal round and reactive. Extraocular motions intact. No scleral icterus. No injection or drainage. ENT: Nose without bleeding, purulent drainage or septal hematoma. Throat without erythema, tonsillar hypertrophy or exudate. Uvula midline. Airway patent. NECK: Trachea midline. No JVD or lymphadenopathy. Supple, nontender, no meningeal signs. CARDIOVASCULAR: Regular rate and rhythm without murmurs, gallops, or rubs. RESPIRATORY: Clear to auscultation. Breath sounds equal bilaterally. No wheezes , rales, or rhonchi. GASTROINTESTINAL: Abdomen soft, non-tender, nondistended. MUSCULOSKELETAL: Right elbow with significant swelling and induration and abrasions on superficial skin. NEUROLOGICAL: Awake and alert. Grossly non focal Psych: cooperative IV line sites with no e.o infection. Laboratory Laboratory Tests Test 02/13/17 02/14/17 13:50 05:22 [place] Level LESS THAN 0.1 Ethyl Alcohol Level 11 White Blood Count 15.5 Red Blood Count 4.96 Hemoglobin 15.1 Hematocrit 45.3 Mean Corpuscular Volume 91.4 Mean Corpuscular Hemoglobin 30.5 Mean Corpuscular Hemoglobin 33.4 Concent Red Cell Distribution Width 14.8 Platelet Count 168 Mean Platelet Volume 9.1 Neutrophils (%) (Auto) 79.7 Lymphocytes (%) (Auto) 9.3 Monocytes (%) (Auto) 9.7 Eosinophils (%) (Auto) 0.5 Basophils (%) (Auto) 0.8 Neutrophils # (Auto) 12.4 Lymphocytes # (Auto) 1.4 Monocytes # (Auto) 1.5 Eosinophils # (Auto) 0.1 Basophils # (Auto) 0.1 CBC Comment DIFF FINAL Differential Comment Sodium Level 135 Potassium Level 3.5 Chloride Level 103 Carbon Dioxide Level 26.4 Anion Gap 6 Blood Urea Nitrogen 5 Creatinine 0.73 Estimat Glomerular Filtration 121 Rate Random Glucose 108 Calcium Level 8.2 Date/Time Procedure Status Source Growth 02/13/17 11:00 Gram Stain Received Wound Elbow Pending 02/13/17 11:00 Wound Culture Received Wound Elbow Pending 02/13/17 10:12 Aerobic Blood Culture Received Blood Peripheral Pending 02/13/17 10:12 Anaerobic Blood Culture Received Blood Peripheral Pending Result Diagram: 02/14/17 0502/14/17 05 Imaging Last Impressions Ribs X-Ray 02/13/17 0943 Signed Impressions: Service Date/Time: January 10:37 - CONCLUSION: No definite displaced rib fractures. Rosa East MD Elbow X-Ray 02/13/17 0943 Signed Impressions: Service Date/Time: January 10:29 - CONCLUSION: Soft tissue swelling and no definite fracture for technique. Rosa East MD Elbow MRI 02/13/17 0000 Signed Impressions: Service Date/Time: January 14:55 - CONCLUSION: Small joint effusion and subcutaneous edema. Rosa East MD Assessment and Plan Assessment and Plan Right elbow cellulitis Possible septic arthritis,bursitis given joint effusion. Possible right septic elbow arthritis. Homelessness H/o trauma to the elbow while skate boarding prior to admission. Recs Continue Zosyn IV Continue Vanco IV Consult Ortho If ortho does not plan on any interventions then consider deescalating to IV vanco only and stop Zosyn IV and observe clinically. Follow cultures Follow clinically. to cover for me from 02/15/17 to 02/17/17. I will be back 02/18/17. Linh Plummer MD Feb 14, 2017 10:11
[2017-02-14 12:00] VITALS: BP 130/74; PULSE 70; RESP 17; TEMP 97.4; O2SAT 95
--- NOTE | 2017-02-14 12:14 | HHI.FPPN ---
Subjective Remarks Patient seen and examined. No acute events overnight. Tmax 100.7 around 1999. Currently afebrile. States that swelling has slightly decreased however redness remains unchanged. Wound on his right elbow is still drainage yellow serosanguineous fluid. He also would like to know if we could increase his pain medication. (Zainab Cuevas MD R3) Objective Vitals Vital Signs Date Time Temp Pulse Resp B/P Pulse Ox O2 Delivery O2 Flow Rate FiO2 02/14/17 08:00 98.5 81 17 132/76 94 02/14/17 00:00 100.4 88 17 129/81 96 02/13/17 20:00 100.7 98 17 125/74 94 02/13/17 16:00 98.7 89 18 129/85 94 02/13/17 14:30 100.0 99 16 124/78 93 Room Air I/O 02/13/17 02/13/17 02/13/17 02/14/17 02/14/17 02/14/17 07:00 15:00 23:00 07:00 15:00 23:00 Intake Total 240 ml 1794 ml Output Total 500 ml 650 ml Balance -260 ml 1144 ml Intake Oral 240 ml 240 ml IV Total 1554 ml Output Urine Total 500 ml 650 ml (Zainab Cuevas MD R3) Result Diagram: 02/14/1752102/14/17 05 Imaging Ribs X-Ray 02/13/17942 Signed Impressions: Service Date/Time: January 10:37 - CONCLUSION: No definite displaced rib fractures. Rosa East MD Elbow X-Ray 02/13/17942 Signed Impressions: Service Date/Time: January 10:29 - CONCLUSION: Soft tissue swelling and no definite fracture for technique. Rosa East MD Elbow MRI 02/13/17 0000 Signed Impressions: Service Date/Time: January 14:55 - CONCLUSION: Small joint effusion and subcutaneous edema. Rosa East MD Objective Remarks GENERAL: WNWD CM lying in bed in NAD SKIN: Warm and dry. Sun tanned with multiple areas of sun carpio. See below for extremity findings. HEENT: AT, NC with EOMI. Oropharynx clear without exudate and erythema. No LAD or rhinorrhea. Small 1cm area of skin trauma on R ear from fall. CARDIOVASCULAR: Regular rate and rhythm without murmurs, gallops, or rubs. RESPIRATORY: Inspiratory and expiratory wheezes bilaterally. No rales or rhonchi. No increased WOB. GASTROINTESTINAL: Abdomen soft, non-tender, nondistended with +BS. No masses appreciated. MUSCULOSKELETAL: No cyanosis or BL calf tenderness. 2+ pulses in all 4 extremities. RUE: Swelling of the L elbow decreased compared to yesterday. Erythema remains the same.Circular eschar from prior wound with surrounding circular erythema on the posterior elbow measuring 14.5x8cm. 2 areas of drainage with weeping yellow serosanguineous fluid. One small area of skin trauma with well appearing granulation tissue currently not bleeding. Elbow with improved ROM, almost to full extension (~10 degrees). Pain with supination and pronation of the LUE. L shoulder, wrist, and all digits are WNL. No axillary LAD appreciated. 2+ radial pulse with appropriate capillary refill. LLE: 2 areas of erythematous, circular/elliptical areas surrounding eschars outlined with the most proximal measuring 7.5x4.5cm and the other 7cmx3.5cm. No other deformities of the LLE. ROM, strength, and sensation intact and WNL. NEUROLOGICAL: AAOx3. Normal speech and judgement. Appropriate interaction with examiners. (Zainab Cuevas MD R3) A/P Assessment and Plan Mr. Lacy is a 36 y/o M with a PMHx of bipolar disorder, PTSD, and hepatitis C admitted for cellulitis of RUE s/p skateboard fall s/d/w Dr. Montero Discharge Planning Discharge pending clinical improvement; however timeframe unclear. Cultures are still pending. Awaiting further eval from specialists. (Zainab Cuevas MD R3) Attending Attestation Patient examined and case discussed with resident physician I have read the above note and agree with the assessment/plan as discussed with me I was involved in all medical decision making for this patient Gage Montero M.D. (Gage Montero MD) Problem List: (1) Cellulitis of right upper extremity Status: Acute Plan: Patient with history of MRSA who is admitted for cellulitis and bursitis of RUE. Today, swelling improved but redness and drainage remain the same. MRI of the right elbow: small joint effusion and subcutaneous edema. ESR 5 but CRP elevated at 11.3. Leukocytosis down trending. Patient received one dose of Clindamycin in ED. Wound culture positive for S. aureus and GAS, sensitivity pending -ID consulted, Dr. Plummer. Appreciate expertise. * Continue IV Vancomycin and Zosyn. Discontinue IV Zosyn if no surgical intervention per ortho * Consult ortho for evaluation of possible septic arthritis given joint effusion * Follow cultures - No indication for aspiration per IR since wound is already draining. - Blood cultures pending - [place] 5mg for pain 1-5. Increase to [place] 10mg for pain 6-10, and Morphine 2mg Q3H for breakthrough pain (2) Elbow injury Status: Acute Plan: S/p fall off of skateboard. X-ray of elbow and ribs negative for fracture See plan above (3) Hepatitis C Status: Chronic Plan: Hep C ab positive, treatment naive - Viral load and genotype pending - We'll discuss with patient possible GI evaluation as outpatient (4) Co-occurrence of multiple psychiatric disorders Status: Acute Plan: Patient with PTSD and Bipolar disorder per chart review. Patient previously on [place]. Currently he has not been taking his [place] as he has been unable to follow up with his PCP. Medical team will defer starting [place] as patient has appropriate behavior and mood. -[place] level: <0.1 -Drug Screen: Pending -Alcohol level: 11 -CIWA protocol, rally pack (5) COPD (chronic obstructive pulmonary disease) Status: Chronic Plan: Wheezing on exam today -Albuterol 2.5mg Neb q4h -Nicotine patch (6) Nutrition, metabolism, and development symptoms Status: Acute Plan: Fluids: None as patient is not septic and tolerating PO fluids Diet: Regular diet as tolerated Electrolytes: WNL DVT: Lovenox daily (Zainab Cuevas MD R3) Problem Qualifiers (1) Hepatitis C: Qualified Code: B18.2 - Chronic hepatitis C without hepatic coma Zainab Cuevas MD R3 Feb 14, 2017 12:14 Gage Montero MD Feb 14, 2017 14:48
[2017-02-14] MEDS ORDERED: ACETAMINOPHEN/HYDROcodone 325 MG/5 MG TAB PO PRN (12:30)
[2017-02-14] MEDS ORDERED: RESP: ALBUTEROL 2.5 MG/3 ML NEB (PRN) NEB (12:30)
[2017-02-14] MEDS: NICOTINE 21 MG/24 HR PATCH T-DERMAL SCH (13:22)
[2017-02-14] MEDS: ACETAMINOPHEN/HYDROcodone 325 MG/10 MG TAB PO PRN ×3 (13:25→21:34)
[2017-02-14] MEDS: ENOXAPARIN SODIUM 40 MG/0.4 ML SYRINGE SQ SCH (13:26)
--- NOTE | 2017-02-14 13:26 | PD.CONS ---
HPI Service Orthopedic Surgeons Consult Requested By Primary Care Physician No Primary Care Physician Admission Diagnosis cellulitis Diagnoses: Chief Complaint: full consult dictated Past Family Social History Allergies: Coded Allergies: Toradol (Verified Adverse Reaction, Intermediate, HIVES, 04/18/16) Tramadol (Verified Adverse Reaction, Intermediate, HIVES, 04/18/16) *MDRO Multi-Drug Resistant Organism (Verified Adverse Reaction, Unknown, ) MRSA (back wound) - 06/2015 MRSA (leg wound) - 08/2015 MRSA (knee wound) - 03/2016 Active Ordered Medications Current Medications Medications (Trade) Dose Ordered Sig/Lex Route Start Time Stop Time Status Last Admin (NS Flush) 2 ml BID IV FLUSH 02/13/17 21:00 02/13/17 20:22 Sodium Chloride 2 ml 2 ml UNSCH PRN IV FLUSH 02/13/17 12:00 Sodium Chloride 1,000 ml @ 120 mls/hr Q8H20M IV 02/13/17 12:00 02/14/17 00:17 (Vancomycin Consult Pharmacy) 0 ml @ 0 mls/hr UNSCH OTHER 02/13/17 12:00 (Tylenol) 500 mg Q4H PRN PO 02/13/17 12:00 (Lovenox Inj) 40 mg Q24H SQ 02/13/17 13:00 02/13/17 13:18 (Zofran Inj) 4 mg Q6H PRN IVP 02/13/17 12:15 (Dulcolax Supp) 10 mg DAILY PRN RECTAL 02/13/17 12:15 (Narcan Inj) 0.4 mg UNSCH PRN IV 02/13/17 12:15 (Romazicon Inj) 0.2 mg Q1M PRN IV PUSH 02/13/17 12:15 (Ativan) 1 mg Q4H PRN PO 02/13/17 12:15 (Ativan Inj) 1 mg Q4H PRN IV PUSH 02/13/17 12:15 (Ativan) 2 mg Q2H PRN PO 02/13/17 12:15 (Ativan Inj) 2 mg Q2H PRN IV PUSH 02/13/17 12:15 (Ativan Inj) 2 mg Q1H PRN IV PUSH 02/13/17 12:15 (Ativan Inj) 2 mg Q15M PRN IV PUSH 02/13/17 12:15 Morphine Sulfate 2 mg 2 mg Q3H PRN IV PUSH 02/13/17 12:15 02/14/17 11:23 Piperacillin Sod/ Tazobactam Sod 50 ml @ 100 mls/hr Q6H IV 02/13/17 14:00 02/14/17 07:50 (Vancomycin Inj/ NS 500 ml Inj) 515 ml @ 250 mls/hr Q12H IV 02/13/17 15:00 02/14/17 04:03 Miscellaneous Information SPECIFIC LAB TO BE DRAWN:VANCOMYCIN TROUGH DATE TO... ONCE ONCE .XX 02/15/17 02:45 02/15/17 02:46 (Habitrol 21 Mg Patch.24 Hr) 1 patch DAILY T-DERMAL 02/14/17 11:45 Miscellaneous Information 1 HS T-DERMAL 02/14/17 21:00 ([place] 10-325 Mg) 1 tab Q4H PRN PO 02/14/17 12:15 ([place] 5-325 Mg) 1 tab Q4H PRN PO 02/14/17 12:30 Reported Meds & Active Scripts Active Physical Exam Vital Signs Vital Signs Date Time Temp Pulse Resp B/P Pulse Ox O2 Delivery O2 Flow Rate FiO2 02/14/17 12:00 97.4 70 17 130/74 95 02/14/17 08:00 98.5 81 17 132/76 94 02/14/17 00:00 100.4 88 17 129/81 96 02/13/17 20:00 100.7 98 17 125/74 94 02/13/17 16:00 98.7 89 18 129/85 94 02/13/17 14:30 100.0 99 16 124/78 93 Room Air Laboratory Laboratory Tests Test 02/13/17 02/14/17 13:50 05:22 [place] Level LESS THAN 0.1 Ethyl Alcohol Level 11 White Blood Count 15.5 Red Blood Count 4.96 Hemoglobin 15.1 Hematocrit 45.3 Mean Corpuscular Volume 91.4 Mean Corpuscular Hemoglobin 30.5 Mean Corpuscular Hemoglobin 33.4 Concent Red Cell Distribution Width 14.8 Platelet Count 168 Mean Platelet Volume 9.1 Neutrophils (%) (Auto) 79.7 Lymphocytes (%) (Auto) 9.3 Monocytes (%) (Auto) 9.7 Eosinophils (%) (Auto) 0.5 Basophils (%) (Auto) 0.8 Neutrophils # (Auto) 12.4 Lymphocytes # (Auto) 1.4 Monocytes # (Auto) 1.5 Eosinophils # (Auto) 0.1 Basophils # (Auto) 0.1 CBC Comment DIFF FINAL Differential Comment Sodium Level 135 Potassium Level 3.5 Chloride Level 103 Carbon Dioxide Level 26.4 Anion Gap 6 Blood Urea Nitrogen 5 Creatinine 0.73 Estimat Glomerular Filtration 121 Rate Random Glucose 108 Calcium Level 8.2 Hepatitis A IgM Antibody NEGATIVE Hepatitis B Surface Antigen NEGATIVE Hepatitis B Core IgM Antibody NEGATIVE Hepatitis C Antibody REACTIVE Date/Time Procedure Status Source Growth 02/13/17 11:00 Gram Stain - Final Resulted Wound Elbow 02/13/17 11:00 Wound Culture - Preliminary Resulted Staphylococcus Aureus Group A Beta Strep 02/13/17 10:12 Aerobic Blood Culture - Preliminary Resulted Blood Peripheral NO GROWTH IN 1 DAY 02/13/17 10:12 Anaerobic Blood Culture - Preliminary Resulted Blood Peripheral NO GROWTH IN 1 DAY Result Diagram: 02/14/17 0522 02/14/17 0522 Assessment & Plan Problem List: (1) Cellulitis of right upper extremity (2) Olecranon bursitis Assessment and Plan Recommend IV ABX Recommend continuing dressing changes Observation/Monitor Thor Goodwin MD Feb 14, 2017 13:26
--- NOTE | 2017-02-14 14:13 | MB ---
cc: BHARGAV COTTON M.D. DATE OF CONSULTATION: 02/14/2017 REASON FOR CONSULTATION: Right elbow cellulitis. HISTORY OF PRESENT ILLNESS: Jaime Lacy is a 36 year-old male who sustained an injury to his right elbow on 02/12/2017 when he fell of his skateboard. He had an abrasion from his elbow. He woke up the following day on 02/13/2017 and had purulent drainage from his elbow. He presented to [facility] where he had an elevated white blood cell count of 18.7. He had plain x-rays which were negative for fracture. He had a MRI scan which showed soft tissue swelling but no abscess and only mild fluid on the elbow joint. He was admitted for management of this infectious process. PAST MEDICAL HISTORY: 1. Significant for hepatitis C. 2. Posttraumatic stress disorder. 3. History of bipolar disorder. 4. Was previously on [place]. 5. Prior infectious processes. ALLERGIES TORADOL TRAMADOL SOCIAL HISTORY: 1. Positive for half pack of cigarettes daily. 2. Occasional alcohol use. 3. Denies drug use. 4. Currently is homeless and unemployed. MEDICATIONS: Current medications are reviewed on the electronic medical record and include; IV antibiotics Pain medications Deep venous thrombosis prophylaxis. PHYSICAL EXAMINATION: IN GENERAL: The patient is alert, oriented, appropriate. His lower extremity and left upper extremity is benign. His right elbow shows good range of motion degrees. He has swelling on the posterior aspect of the elbow overlying the olecranon where he has serial purulent drainage. He has some mild diffuse erythema about the posterior aspect of the elbow. No instability although the distal pulses are 2+. Distal motor sensory, neurologic examination is intact. RADIOLOGIC: Plain x-rays of the elbow were reviewed which are normal and that MRI scan is reviewed which shows posterior swelling but no abscess formation. ASSESSMENT: Right elbow cellulitis and draining, infected olecranon bursitis. DECISION MAKING: The condition was discussed, options of treatment were discussed. Currently he is on IV antibiotics and he is having regular dressing changes. He has active drainage so the combination of this treatment should be successful in eradicating infection. There is a small chance that his condition would worsen and need surgical debridement and therefore either I will or the nurse practitioner will continue to follow and made decisions based on the findings at that time. All questions were answered. MD Alma Rosa Salas /1:29 PM /1:36 PM
[2017-02-14 16:00] VITALS: BP 148/79; PULSE 89; RESP 17; TEMP 100; O2SAT 98
[2017-02-14 20:00] VITALS: BP 139/94; PULSE 84; RESP 20; TEMP 98.9; O2SAT 98
[2017-02-14] MEDS: REMOVE OLD PATCH T-DERMAL SCH (21:00)
[2017-02-14] MEDS: SODIUM CHLORIDE 0.9% FLUSH 10 ML FLUSH IV FLUSH PRN (23:02)
[2017-02-15] VITALS: BP 125/80; PULSE 96; RESP 20; TEMP 100.8; O2SAT 95
[2017-02-15] MEDS: ACETAMINOPHEN/HYDROcodone 325 MG/10 MG TAB PO PRN ×6 (01:45→21:46)
[2017-02-15] MEDS: VANCOMYCIN INJ 1,500 MG in SODIUM CHLORID 0.9% 500 ML INJ 500 ML IV SCH (02:44)
[2017-02-15] MEDS ORDERED: PHARMACY ORDERED LAB ONE (02:45)
[2017-02-15] MEDS: MORPHINE SULFATE 4 MG/ML INJ IV PUSH PRN ×6 (03:01→23:16)
[2017-02-15 04:00] VITALS: TEMP 97.7
[2017-02-15 05:23] LABS: HEMATOCRIT 44.3 % (39.0-51.0); MEAN CORPUSCULAR HEMOGLOBIN 30.9 PG (27.0-34.0); MEAN CORPUSCULAR HGB CONC 33.6 % (32.0-36.0); PLATELET COUNT 198 TH/MM3 (150-450); RED BLOOD COUNT 4.81 MIL/MM3 (4.50-5.90); RED CELL DISTRIBUTION WIDTH 14.4 % (11.6-17.2); REVIEW FLAG FINAL; WHITE BLOOD COUNT 13.7 TH/MM3 (4.0-11.0)
[2017-02-15] MEDS: NICOTINE 21 MG/24 HR PATCH T-DERMAL SCH (07:32)
[2017-02-15] MEDS: SODIUM CHLORIDE 0.9% FLUSH 10 ML FLUSH IV FLUSH SCH ×2 (07:37→21:47)
[2017-02-15 08:00] VITALS: BP 124/70; PULSE 86; RESP 17; TEMP 99.3; O2SAT 96
[2017-02-15] MEDS: ENOXAPARIN SODIUM 40 MG/0.4 ML SYRINGE SQ SCH (11:20)
--- NOTE | 2017-02-15 11:31 | HHI.FPPN ---
Subjective Remarks Patient seen and examined. No acute events overnight. Patient reports he had a fever up to 102, but fever up to 100.8 is the only document fever. He responded appropriately to Tylenol and currently is 99.3 without complaints. He states that her warmth, edema, and pain in his R elbow has been improving each day. He has no other complaints and denies any SOB, chest pain, NVD, ABD pain, and calf tenderness. (Kiran Hill MD R1) Objective Vitals Vital Signs Date Time Temp Pulse Resp B/P Pulse Ox O2 Delivery O2 Flow Rate FiO2 02/15/17 08:00 99.3 86 17 124/70 96 02/15/17 04:00 97.7 02/15/17 00:00 100.8 96 20 125/80 95 02/14/17 20:00 98.9 84 20 139/94 98 02/14/17 16:00 100.0 89 17 148/79 98 02/14/17 12:00 97.4 70 17 130/74 95 I/O 02/14/17 02/14/17 02/14/17 02/15/17 02/15/17 02/15/17 07:00 15:00 23:00 07:00 15:00 23:00 Intake Total 1794 ml 1665 ml 1538 ml 908 ml Output Total 650 ml 600 ml 1600 ml Balance 1144 ml 1665 ml 938 ml -692 ml Intake Oral 240 ml 240 ml 720 ml 480 ml IV Total 1554 ml 1425 ml 818 ml 428 ml Output Urine Total 650 ml 600 ml 1600 ml # Voids 3 # Bowel Movements 0 (Kiran Hill MD R1) Result Diagram: 02/15/17 0448 02/14/17 0522 Objective Remarks GENERAL: WNWD CM lying in bed in NAD SKIN: Warm and dry. Sun tanned with multiple areas of sun carpio. See below for extremity findings. HEENT: AT, NC with EOMI. Oropharynx clear without exudate and erythema. No LAD or rhinorrhea. Small 1cm area of skin trauma on R ear from fall. CARDIOVASCULAR: Regular rate and rhythm without murmurs, gallops, or rubs. RESPIRATORY: Continued inspiratory and expiratory wheezes bilaterally. No rales or rhonchi. No increased WOB. GASTROINTESTINAL: Abdomen soft, non-tender, nondistended with +BS. No masses appreciated. MUSCULOSKELETAL: No cyanosis or BL calf tenderness. 2+ pulses in all 4 extremities. RUE: Swelling of the L elbow decreased significantly compared to admission. Erythema remains the same.Circular eschar from prior wound with surrounding circular erythema on the posterior elbow measuring 14.5x8cm. 2 areas of drainage with weeping yellow serosanguineous fluid. One small area of skin trauma with well appearing granulation tissue currently not bleeding. Elbow with improved ROM to full extension with mild pain. Pain with supination and pronation of the LUE has resolved. L shoulder, wrist, and all digits are WNL. No axillary LAD appreciated. 2+ radial pulse with appropriate capillary refill. LLE: 2 areas of erythematous, circular/elliptical areas surrounding eschars outlined with the most proximal measuring 7.5x4.5cm and the other 7cmx3.5cm both appear to be healing well. No other deformities of the LLE. ROM, strength, and sensation intact and WNL. NEUROLOGICAL: AAOx3. Normal speech and judgement. Appropriate interaction with examiners. (Kiran Hill MD R1) A/P Assessment and Plan Mr. Lacy is a 36 y/o M with a PMHx of bipolar disorder, PTSD, and hepatitis C admitted for cellulitis of RUE s/p skateboard fall s/d/w Dr. Montero Discharge Planning Discharge pending clinical improvement; however timeframe unclear. Cultures are still pending. Awaiting further eval from specialists. (Kiran Hill MD R1) Attending Attestation Pt. examined and case discussed with resident physicians I have read the above note and agree with the assessment/plan as discussed with me I was involved in all medical decision making for this patient Gage Montero MD (Gage Montero MD) Problem List: (1) Cellulitis of right upper extremity Status: Acute Plan: Patient with history of MRSA who is admitted for cellulitis and bursitis of RUE. Today, swelling improved but redness and drainage remain the same. MRI of the right elbow: small joint effusion and subcutaneous edema. ESR 5 but CRP elevated at 11.3. Leukocytosis down trending. Patient received one dose of Clindamycin in ED. Wound culture positive for S. aureus and GAS, sensitivity pending -ID consulted, Dr. Plummer. Appreciate expertise. * Continue IV Vancomycin and Zosyn. Discontinue IV Zosyn if no surgical intervention per ortho * Consult ortho for evaluation of possible septic arthritis given joint effusion * Follow cultures * -Orthopedic surgery consulted, Dr. Goodwin, appreciate recommendations * No indication for surgical intervention at this time. * Continue to monitor clinical course - No indication for aspiration per IR since wound is already draining. - Blood cultures: NTD Medications: -Vancomycin 1750mg BID, pharmacy consulted - [place] 5mg for pain 1-5. Increase to [place] 10mg for pain 6-10, and Morphine 2mg Q3H for breakthrough pain (2) Elbow injury Status: Acute Plan: S/p fall off of skateboard. X-ray of elbow and ribs negative for fracture See plan above (3) Hepatitis C Status: Chronic Plan: Hep C ab positive, treatment naive - Viral load and genotype pending - We'll discuss with patient possible GI evaluation as outpatient (4) Co-occurrence of multiple psychiatric disorders Status: Acute Plan: Patient with PTSD and Bipolar disorder per chart review. Patient previously on [place]. Currently he has not been taking his [place] as he has been unable to follow up with his PCP. Medical team will defer starting [place] as patient has appropriate behavior and mood. -[place] level: <0.1 -Alcohol level: 11 -CIWA protocol, rally pack (5) COPD (chronic obstructive pulmonary disease) Status: Chronic Plan: Wheezing on exam today -Albuterol 2.5mg Neb q4h -Nicotine patch -Incentive spirometry, Resp CPT, and Acapella ordered (6) Nutrition, metabolism, and development symptoms Status: Acute Plan: Fluids: None as patient is not septic and tolerating PO fluids Diet: Regular diet as tolerated Electrolytes: WNL DVT: Lovenox daily (Kiran Hill MD R1) Problem Qualifiers (1) Hepatitis C: Qualified Code: B18.2 - Chronic hepatitis C without hepatic coma Kiran Hill MD R1 Feb 15, 2017 11:31 Gage Montero MD Feb 15, 2017 18:25
[2017-02-15 12:00] VITALS: BP 140/84; PULSE 87; RESP 18; TEMP 96.4; O2SAT 96
[2017-02-15] MEDS ORDERED: VANCOMYCIN INJ 1,750 MG in SODIUM CHLORID 0.9% 500 ML INJ 500 ML IV SCH (15:00)
[2017-02-15 16:00] VITALS: BP 134/85; PULSE 88; RESP 18; TEMP 98.5; O2SAT 98
--- NOTE | 2017-02-15 16:17 | HHI.IDPN ---
Subjective Subjective Remarks ID COVERAGE is a 36 y/o CF with PMHx of multiple hospitalizations for abscesses, cellulitis. ? septic arthritis. He presents to the ED with a red, swollen right elbow that is draining purulent material after a fall from a skateboard last night. He states that he was on his skateboard yesterday evening at approximately 5 PM when he "tripped and fell" scraping his elbow and hitting his ribs on the right side. Notes reviewed Ortho notes reviewed Has small joint effuison R elbow Has good ROM at elbow C/S MSSA and Strep Temps ok Antibiotics vanco Lines PIV Past Medical History Bipolar disorder previously on [place] PTSD Hepatitis C Past Surgical History L elbow joint clean out with drain placement 2014 L 5th digit repair as a child Allergies: Coded Allergies: Toradol (Verified Adverse Reaction, Intermediate, HIVES, 04/18/16) Tramadol (Verified Adverse Reaction, Intermediate, HIVES, 04/18/16) *MDRO Multi-Drug Resistant Organism (Verified Adverse Reaction, Unknown, ) MRSA (back wound) - 06/2015 MRSA (leg wound) - 08/2015 MRSA (knee wound) - 03/2016 Objective . Vital Signs Date Time Temp Pulse Resp B/P Pulse Ox O2 Delivery O2 Flow Rate FiO2 02/15/17 12:00 96.4 87 18 140/84 96 02/15/17 08:00 99.3 86 17 124/70 96 02/15/17 04:00 97.7 02/15/17 00:00 100.8 96 20 125/80 95 02/14/17 20:00 98.9 84 20 139/94 98 02/14/17 02/14/17 02/15/17 15:00 23:00 07:00 Intake Total 1665 ml 1538 ml 908 ml Output Total 600 ml 1600 ml Balance 1665 ml 938 ml -692 ml Intake Oral 240 ml 720 ml 480 ml IV Total 1425 ml 818 ml 428 ml Output Urine Total 600 ml 1600 ml # Voids 3 # Bowel Movements 0 . Laboratory Tests Test 02/14/17 02/15/17 05:22 04:48 White Blood Count 15.5 TH/MM3 13.7 TH/MM3 Red Blood Count 4.96 MIL/MM3 4.81 MIL/MM3 Hemoglobin 15.1 GM/DL 14.9 GM/DL Hematocrit 45.3 % 44.3 % Mean Corpuscular Volume 91.4 FL 92.0 FL Mean Corpuscular Hemoglobin 30.5 PG 30.9 PG Mean Corpuscular Hemoglobin 33.4 % 33.6 % Concent Red Cell Distribution Width 14.8 % 14.4 % Platelet Count 168 TH/MM3 198 TH/MM3 Mean Platelet Volume 9.1 FL 9.3 FL Neutrophils (%) (Auto) 79.7 % Lymphocytes (%) (Auto) 9.3 % Monocytes (%) (Auto) 9.7 % Eosinophils (%) (Auto) 0.5 % Basophils (%) (Auto) 0.8 % Neutrophils # (Auto) 12.4 TH/MM3 Lymphocytes # (Auto) 1.4 TH/MM3 Monocytes # (Auto) 1.5 TH/MM3 Eosinophils # (Auto) 0.1 TH/MM3 Basophils # (Auto) 0.1 TH/MM3 CBC Comment DIFF FINAL Differential Comment Laboratory Tests Test 02/14/17 05:22 Sodium Level 135 MEQ/L Potassium Level 3.5 MEQ/L Chloride Level 103 MEQ/L Carbon Dioxide Level 26.4 MEQ/L Anion Gap 6 MEQ/L Blood Urea Nitrogen 5 MG/DL Creatinine 0.73 MG/DL Estimat Glomerular Filtration 121 ML/MIN Rate Random Glucose 108 MG/DL Calcium Level 8.2 MG/DL Microbiology Date/Time Procedure Status Source Growth 02/13/17 10:04 Aerobic Blood Culture - Preliminary Resulted Blood Peripheral NO GROWTH IN 2 DAYS 02/13/17 10:04 Anaerobic Blood Culture - Preliminary Resulted Blood Peripheral NO GROWTH IN 2 DAYS 02/13/17 10:12 Aerobic Blood Culture - Preliminary Resulted Blood Peripheral NO GROWTH IN 2 DAYS 02/13/17 10:12 Anaerobic Blood Culture - Preliminary Resulted Blood Peripheral NO GROWTH IN 2 DAYS 02/13/17 11:00 Gram Stain - Final Complete Wound Elbow 02/13/17 11:00 Wound Culture - Final Complete Staphylococcus Aureus Group A Beta Strep Imaging Ribs X-Ray 02/13/17 0943 Signed Impressions: Service Date/Time: January 10:37 - CONCLUSION: No definite displaced rib fractures. Rosa East MD Elbow X-Ray 02/13/17 0943 Signed Impressions: Service Date/Time: January 10:29 - CONCLUSION: Soft tissue swelling and no definite fracture for technique. Rosa East MD Elbow MRI 02/13/17 0000 Signed Impressions: Service Date/Time: January 14:55 - CONCLUSION: Small joint effusion and subcutaneous edema. Rosa East MD Physical Exam GENERAL: Awake and alert, NAD SKIN: No rashes, ecchymoses or lesions. Cool and dry. HEAD: Atraumatic. Normocephalic. No temporal or scalp tenderness. EYES: Pupils equal round and reactive. Extraocular motions intact. No scleral icterus. No injection or drainage. ENT: Nose without bleeding, purulent drainage or septal hematoma. Throat without erythema. Airway patent. NECK: Trachea midline. No JVD or lymphadenopathy. Supple, nontender, no meningeal signs. CARDIOVASCULAR: Regular rate and rhythm without murmurs, gallops, or rubs. RESPIRATORY: Clear to auscultation. Breath sounds equal bilaterally. No wheezes , rales, or rhonchi. GASTROINTESTINAL: Abdomen soft, non-tender, nondistended. MUSCULOSKELETAL: Right elbow is swollen but has good ROM. There is a small wound over R olecranon with some drainage. he has multiple scabbed areas in his UE NEUROLOGICAL: Awake and alert. Grossly non focal Psych: cooperative IV line sites with no e.o infection. Assessment & Plan Remarks Right elbow cellulitis Prob olecranon bursitis - C/S MSSA and Strep Clinically no evidence of septic joint Homelessness H/o trauma to the elbow while skate boarding prior to admission. Recs Stop Vanco IV IV Ancef Needs to elevbate RUE to help with edema Monitor progress Ortho recommends conservative Rx Maia Pascual MD Feb 15, 2017 16:17 Maia Pascual MD Feb 15, 2017 16:17
[2017-02-15] MEDS ORDERED: ceFAZolin 2 GM PREMIX 50 ML IV SCH (17:00)
--- NOTE | 2017-02-15 19:27 | PD.ORT.PN ---
Subjective Subjective Remarks Patient appears comfortable. Pain controlled. Denies fever, chills or sweats. He states since his abx therapy has changed, it has affected his throat. Denies SOB, rash, or itchiness. NAD. Significant other at bedside. Objective Vitals Vital Signs Date Time Temp Pulse Resp B/P Pulse Ox O2 Delivery O2 Flow Rate FiO2 02/15/17 16:00 98.5 88 18 134/85 98 02/15/17 12:00 96.4 87 18 140/84 96 02/15/17 08:00 99.3 86 17 124/70 96 02/15/17 04:00 97.7 02/15/17 00:00 100.8 96 20 125/80 95 02/14/17 20:00 98.9 84 20 139/94 98 I/O 02/14/17 02/14/17 02/14/17 02/15/17 02/15/17 02/15/17 07:00 15:00 23:00 07:00 15:00 23:00 Intake Total 1794 ml 1665 ml 1538 ml 908 ml 760 ml Output Total 650 ml 600 ml 1600 ml 1300 ml Balance 1144 ml 1665 ml 938 ml -692 ml -540 ml Intake Oral 240 ml 240 ml 720 ml 480 ml 760 ml IV Total 1554 ml 1425 ml 818 ml 428 ml Output Urine Total 650 ml 600 ml 1600 ml 1300 ml # Voids 3 # Bowel Movements 0 1 Result Diagram: 02/15/17 0448 02/14/17 0522 Objective Remarks Right elbow erythema and swelling noted small wound with minimal serosanguineous drainage tenderness with direct palpation distally motor, neuro, and sensory intact Assessment & Plan Problem List: (1) Cellulitis of right upper extremity (2) Olecranon bursitis Assessment and Plan Pain management Continue IV ABX per Infectious Disease Recommend continuing dressing changes Observation/Monitor Marcello Hinson Feb 15, 2017 19:27
[2017-02-15] MEDS ORDERED: diphenhydrAMINE HCL 50 MG CAP PO ONE (19:45)
[2017-02-15 20:00] VITALS: BP 142/97; PULSE 87; RESP 20; TEMP 98.5; O2SAT 98
[2017-02-15] MEDS: REMOVE OLD PATCH T-DERMAL SCH (21:00)
[2017-02-15] MEDS: SODIUM CHLORIDE 0.9% FLUSH 10 ML FLUSH IV FLUSH PRN (23:16)
[2017-02-16] VITALS: BP 127/77; PULSE 75; RESP 20; TEMP 99.5; O2SAT 96
[2017-02-16] MEDS: ACETAMINOPHEN/HYDROcodone 325 MG/10 MG TAB PO PRN ×5 (02:09→21:06)
[2017-02-16 05:19] LABS: AUTOMATED NEUTROPHIL # 6.6 TH/MM3 (1.8-7.7); BASOPHIL # 0.1 TH/MM3 (0-0.2); BASOPHIL % 0.8 % (0.0-2.0); EOSINOPHIL # 0.2 TH/MM3 (0-0.4); EOSINOPHIL % 2.2 % (0.0-4.0); HEMATOCRIT 45.1 % (39.0-51.0); HEMO FLAGS DIFF FINAL; LYMPH % 15.8 % (9.0-44.0); LYMPHOCYTE # 1.5 TH/MM3 (1.0-4.8); MEAN CELL VOLUME 92.8 FL (80.0-100.0); MEAN CORPUSCULAR HGB CONC 33.4 % (32.0-36.0); MONO % 13.7 % (0.0-8.0); NEUT % 67.5 % (16.0-70.0); PLATELET COUNT 244 TH/MM3 (150-450); RED BLOOD COUNT 4.86 MIL/MM3 (4.50-5.90); RED CELL DISTRIBUTION WIDTH 14.2 % (11.6-17.2); WHITE BLOOD COUNT 9.8 TH/MM3 (4.0-11.0)
[2017-02-16 05:49] LABS: BICARBONATE 27.7 MEQ/L (21.0-32.0); POTASSIUM 3.5 MEQ/L (3.5-5.1)
[2017-02-16] MEDS: CLINDAMYCIN 600 MG/NS 100 ML IV SCH ×8 (06:45→18:27)
[2017-02-16] MEDS: MORPHINE SULFATE 4 MG/ML INJ IV PUSH PRN ×5 (06:46→22:31)
[2017-02-16] MEDS: SODIUM CHLORIDE 0.9% FLUSH 10 ML FLUSH IV FLUSH PRN ×2 (06:47→22:31)
[2017-02-16 08:00] VITALS: BP 123/84; PULSE 68; RESP 17; TEMP 97.8; O2SAT 96
--- NOTE | 2017-02-16 08:11 | HHI.FPPN ---
Subjective Remarks Pt seen and examined this morning. AFVSS. No acute events over night. Pt reports that his arm seems to be more swollen. He has not had his arm elevated overnight. He is able to flex and extend elbow. He denies chest pain, shortness of breath, abdominal pain, nausea, vomiting, diarrhea. He has taken clindamycin in the past without any adverse reaction. (Catalino Houston MD R2) Objective Vitals Vital Signs Date Time Temp Pulse Resp B/P Pulse Ox O2 Delivery O2 Flow Rate FiO2 02/16/17 08:00 97.8 68 17 123/84 96 02/16/17 00:00 99.5 75 20 127/77 96 02/15/17 20:00 98.5 87 20 142/97 98 02/15/17 16:00 98.5 88 18 134/85 98 02/15/17 12:00 96.4 87 18 140/84 96 I/O 02/15/17 02/15/17 02/15/17 02/16/17 02/16/17 02/16/17 07:00 15:00 23:00 07:00 15:00 23:00 Intake Total 908 ml 760 ml 720 ml 720 ml Output Total 1600 ml 1300 ml 300 ml 800 ml Balance -692 ml -540 ml 420 ml -80 ml Intake Oral 480 ml 760 ml 720 ml 720 ml IV Total 428 ml Output Urine Total 1600 ml 1300 ml 300 ml 800 ml # Bowel Movements 1 (Catalino Houston MD R2) Result Diagram: 02/16/17 0434 02/16/17 0434 Objective Remarks GENERAL: WNWD CM lying in bed in NAD SKIN: Warm and dry. Sun tanned with multiple areas of sun carpio. See below for extremity findings. Small 1cm area of skin trauma on R ear from fall. CARDIOVASCULAR: Regular rate and rhythm without murmurs, gallops, or rubs. RESPIRATORY: Continued inspiratory and expiratory wheezes bilaterally. No rales or rhonchi. No increased WOB. GASTROINTESTINAL: Abdomen soft, non-tender, nondistended with +BS. No masses appreciated. MUSCULOSKELETAL: No cyanosis or BL calf tenderness. 2+ pulses in all 4 extremities. RUE: 1+ edema of right upper extremity extending from elbow to mid forearm. Elbow covered with gauze dressing, minimal serous drainage. Pt refuses to remove gauze dressing. Range of motion improved from admission. Improving erythema. Elbow with improved ROM to full extension with minimal pain. No axillary LAD appreciated. 2+ radial pulse with appropriate capillary refill. LLE: 2 areas of erythematous, circular/elliptical areas surrounding eschars outlined with the most proximal measuring 7.5x4.5cm and the other 7cmx3.5cm both appear to be healing well. No other deformities of the LLE. ROM, strength, and sensation intact and WNL. NEUROLOGICAL: Awake and alert. Normal speech and judgement. (Catalino Houston MD R2) A/P Assessment and Plan Mr. Lacy is a 36 y/o M with a PMHx of bipolar disorder, PTSD, and hepatitis C admitted for cellulitis of RUE s/p skateboard fall s/d/w Dr. Montero Discharge Planning Anticipate discharge in the next 1-2 days once pt has been transitioned to oral antibiotics. (Catalino Houston MD R2) Problem List: (1) Cellulitis of right upper extremity Status: Acute Plan: Patient with history of MRSA who is admitted for cellulitis and bursitis of RUE. Today, swelling improved but redness and drainage remain the same. MRI of the right elbow: small joint effusion and subcutaneous edema. ESR 5 but CRP elevated at 11.3. Leukocytosis down trending. Patient received one dose of Clindamycin in ED. Wound culture positive for S. aureus and GAS, sensitive to Clindamycin Pt encouraged to elevate right upper extremity to help improve edema -ID consulted, Dr. Plummer. Appreciate expertise. * Discontinue IV Vancomycin * Start Clindamycin 600mg IV Q6H (02/16- ) * Consult ortho for evaluation of possible septic arthritis given joint effusion * Follow cultures -Orthopedic surgery consulted, Dr. Goodwin, appreciate recommendations * No indication for surgical intervention at this time. * Continue to monitor clinical course - No indication for aspiration per IR since wound is already draining. - Blood cultures: NGTD Medications: - [place] 5mg for pain 1-5. Increase to [place] 10mg for pain 6-10, and Morphine 2mg Q3H for breakthrough pain (2) Elbow injury Status: Acute Plan: S/p fall off of skateboard. X-ray of elbow and ribs negative for fracture See plan above (3) Hepatitis C Status: Chronic Plan: Hep C ab positive, treatment naive - Viral load and genotype pending - We'll discuss with patient possible GI evaluation as outpatient (4) Co-occurrence of multiple psychiatric disorders Status: Acute Plan: Patient with PTSD and Bipolar disorder per chart review. Patient previously on [place]. Currently he has not been taking his [place] as he has been unable to follow up with his PCP. Medical team will defer starting [place] as patient has appropriate behavior and mood. -[place] level: <0.1 -Alcohol level: 11 -CIWA protocol, rally pack (5) COPD (chronic obstructive pulmonary disease) Status: Chronic Plan: Pt with inspiratory and expiratory wheezing, history significant for tobacco abuse. Pt likely with history of COPD. -Albuterol 2.5mg Neb q4h PRN -Nicotine patch -Smoking cessation encouraged -Incentive spirometry, Resp CPT, and Acapella ordered (6) Nutrition, metabolism, and development symptoms Status: Acute Plan: Fluids: None, pt tolerating PO Diet: Regular diet as tolerated Electrolytes: WNL DVT: Lovenox daily (Catalino Houston MD R2) Problem Qualifiers (1) Hepatitis C: Qualified Code: B18.2 - Chronic hepatitis C without hepatic coma Catalino Houston MD R2 Feb 16, 2017 08:11 Gage Montero MD Feb 16, 2017 15:57
[2017-02-16] MEDS: NICOTINE 21 MG/24 HR PATCH T-DERMAL SCH (08:53)
[2017-02-16] MEDS: SODIUM CHLORIDE 0.9% FLUSH 10 ML FLUSH IV FLUSH SCH ×2 (08:58→21:07)
[2017-02-16 12:00] VITALS: BP 135/76; PULSE 25; PULSE 68; RESP 16; TEMP 97.2; O2SAT 95
[2017-02-16] MEDS: ENOXAPARIN SODIUM 40 MG/0.4 ML SYRINGE SQ SCH (13:19)
[2017-02-16 16:00] VITALS: BP 131/87; PULSE 68; RESP 17; TEMP 97.6; O2SAT 97
[2017-02-16 20:00] VITALS: BP 130/82; PULSE 78; RESP 20; TEMP 97.4; O2SAT 97
[2017-02-16] MEDS: REMOVE OLD PATCH T-DERMAL SCH (21:00)
[2017-02-17] VITALS: BP 141/80; PULSE 80; RESP 20; TEMP 98; O2SAT 98
[2017-02-17] MEDS: CLINDAMYCIN 600 MG/NS 100 ML IV SCH ×8 (00:57→18:41)
[2017-02-17] MEDS: ACETAMINOPHEN/HYDROcodone 325 MG/10 MG TAB PO PRN ×5 (00:59→20:26)
[2017-02-17] MEDS: MORPHINE SULFATE 4 MG/ML INJ IV PUSH PRN ×5 (02:17→22:06)
[2017-02-17] MEDS ORDERED: PHARMACY ORDERED LAB ONE (02:45)
[2017-02-17] MEDS: NICOTINE 21 MG/24 HR PATCH T-DERMAL SCH (07:51)
[2017-02-17] MEDS: SODIUM CHLORIDE 0.9% FLUSH 10 ML FLUSH IV FLUSH SCH ×2 (07:51→20:27)
--- NOTE | 2017-02-17 07:57 | HHI.FPPN ---
Subjective Remarks Patient is doing slightly better this morning. He states his pain is still 8 out of 10 and "pulsating". Denies fevers, chills. Denies chest pain, nausea, diarrhea, vomiting, shortness of breath. (Thor Wetzel MD R2) Objective Vitals Vital Signs Date Time Temp Pulse Resp B/P Pulse Ox O2 Delivery O2 Flow Rate FiO2 02/17/17 00:00 98.0 80 20 141/80 98 02/16/17 20:00 97.4 78 20 130/82 97 02/16/17 16:00 97.6 68 17 131/87 97 02/16/17 12:00 97.2 68 16 135/76 95 02/16/17 08:00 97.8 68 17 123/84 96 I/O 02/16/17 02/16/17 02/16/17 02/17/17 02/17/17 02/17/17 07:00 15:00 23:00 07:00 15:00 23:00 Intake Total 720 ml 1680 ml 960 ml 720 ml Output Total 800 ml 800 ml 800 ml 650 ml Balance -80 ml 880 ml 160 ml 70 ml Intake Oral 720 ml 1680 ml 960 ml 720 ml Output Urine Total 800 ml 800 ml 800 ml 650 ml # Bowel Movements 0 0 0 (Thor Wetzel MD R2) Result Diagram: 02/16/1743302/16/17433 Objective Remarks GENERAL: WNWD CM lying in bed in NAD SKIN: Warm and dry. Sun tanned with multiple areas of sun carpio. See below for extremity findings. Small 1cm area of skin trauma on R ear from fall. CARDIOVASCULAR: Regular rate and rhythm without murmurs, gallops, or rubs. RESPIRATORY: Continued inspiratory and expiratory wheezes bilaterally. No rales or rhonchi. No increased WOB. GASTROINTESTINAL: Abdomen soft, non-tender, nondistended with +BS. No masses appreciated. MUSCULOSKELETAL: No cyanosis or BL calf tenderness. 2+ pulses in all 4 extremities. RUE: Elbow covered with gauze dressing, minimal serous drainage. Gauze removed from elbow revealing 2 scabbed, well-healed lesions; one 1 cm 1 cm draining, yellow, slightly erythematous lesion. Improving erythema. Elbow with improved ROM to full extension with minimal pain. No axillary LAD appreciated. 2+ radial pulse with appropriate capillary refill. LLE: 2 areas of erythematous, circular/elliptical areas surrounding eschars outlined with the most proximal measuring 7.5x4.5cm and the other 7cmx3.5cm both appear to be healing well. No other deformities of the LLE. ROM, strength, and sensation intact and WNL. NEUROLOGICAL: Awake and alert. Normal speech and judgement. (Thor Wetzel MD R2) A/P Assessment and Plan Mr. Lacy is a 36 y/o M with a PMHx of bipolar disorder, PTSD, and hepatitis C admitted for cellulitis of RUE s/p skateboard fall Discharge Planning Anticipate discharge today or tomorrow once pt has been transitioned to oral antibiotics. Infectious disease consulted (Thor Wetzel MD R2) Attending Attestation Pt. examined and case discussed with resident physicians I have read the above note and agree with the assessment/plan as discussed with me I was involved in all medical decision making for this patient Gage Montero MD (Gage Montero MD) Problem List: (1) Cellulitis of right upper extremity Status: Acute Plan: Patient with history of MRSA who is admitted for cellulitis and bursitis of RUE. Wound culture positive for S. aureus and GAS, sensitive to Clindamycin Pt encouraged to elevate right upper extremity to help improve edema -ID consulted, Dr. Plummer. Appreciate expertise. * Discontinue IV Vancomycin (02/13-02/16) * Clindamycin 600mg IV Q6H (02/16- ) * Follow cultures -Orthopedic surgery consulted, Dr. Goodwin, appreciate recommendations * No indication for surgical intervention at this time. * Continue to monitor clinical course - Blood cultures: NGTD Pain Medications: - [place] 5mg for pain 1-5. Increase to [place] 10mg for pain 6-10, and Morphine 2mg Q3H for breakthrough pain (2) Elbow injury Status: Acute Plan: S/p fall off of skateboard. X-ray of elbow and ribs negative for fracture See plan above (3) Hepatitis C Status: Chronic Plan: Hep C ab positive, treatment naive - Viral load and genotype pending - We'll discuss with patient possible GI evaluation as outpatient (4) Co-occurrence of multiple psychiatric disorders Status: Acute Plan: Patient with PTSD and Bipolar disorder per chart review. Patient previously on [place]. Currently he has not been taking his [place] as he has been unable to follow up with his PCP. Medical team will defer starting [place] as patient has appropriate behavior and mood. -[place] level: <0.1 (5) COPD (chronic obstructive pulmonary disease) Status: Chronic Plan: Pt with inspiratory and expiratory wheezing, history significant for tobacco abuse. Pt likely with history of COPD. -Albuterol 2.5mg Neb q4h PRN -Nicotine patch -Smoking cessation encouraged -Incentive spirometry, Resp CPT, and Acapella ordered (6) Nutrition, metabolism, and development symptoms Status: Acute Plan: Fluids: None, pt tolerating PO Diet: Regular diet as tolerated Electrolytes: WNL DVT: Lovenox daily (Thor Wetzel MD R2) Problem Qualifiers (1) Hepatitis C: Qualified Code: B18.2 - Chronic hepatitis C without hepatic coma Thor Wetzel MD R2 Feb 17, 2017 07:57 Gage Montero MD Feb 17, 2017 18:37
[2017-02-17 08:00] VITALS: BP 133/78; PULSE 72; RESP 13; TEMP 95.8; O2SAT 96
--- NOTE | 2017-02-17 08:03 | PD.ORT.PN ---
Subjective Subjective Remarks Patient comfortable Objective Vitals Vital Signs Date Time Temp Pulse Resp B/P Pulse Ox O2 Delivery O2 Flow Rate FiO2 02/17/17 00:00 98.0 80 20 141/80 98 02/16/17 20:00 97.4 78 20 130/82 97 02/16/17 16:00 97.6 68 17 131/87 97 02/16/17 12:00 97.2 68 16 135/76 95 I/O 02/16/17 02/16/17 02/16/17 02/17/17 02/17/17 02/17/17 07:00 15:00 23:00 07:00 15:00 23:00 Intake Total 720 ml 1680 ml 960 ml 720 ml Output Total 800 ml 800 ml 800 ml 650 ml Balance -80 ml 880 ml 160 ml 70 ml Intake Oral 720 ml 1680 ml 960 ml 720 ml Output Urine Total 800 ml 800 ml 800 ml 650 ml # Bowel Movements 0 0 0 Result Diagram: 02/16/17 0434 02/16/17 0434 Other Results staph A Objective Remarks Right elbow dressing in place distally motor, neuro, and sensory intact Assessment & Plan Problem List: (1) Cellulitis of right upper extremity (2) Olecranon bursitis Assessment and Plan Culture positive for S. Aureus Pain management Continue IV ABX per Infectious Disease Recommend continuing dressing changes Observation/Monitor Thor Goodwin MD Feb 17, 2017 08:03
[2017-02-17 12:00] VITALS: BP 123/72; PULSE 74; RESP 16; TEMP 97.6; O2SAT 95
[2017-02-17 13:52] LABS: HEPATITIS C RNA GENOTYPE 1a (())
--- NOTE | 2017-02-17 14:42 | HHI.IDPN ---
Subjective Subjective Remarks ID COVERAGE is a 36 y/o CF with PMHx of multiple hospitalizations for abscesses, cellulitis. ? septic arthritis. He presents to the ED with a red, swollen right elbow that is draining purulent material after a fall from a skateboard last night. He states that he was on his skateboard yesterday evening at approximately 5 PM when he "tripped and fell" scraping his elbow and hitting his ribs on the right side. Notes reviewed Had problems with Ancef over the weekend - complained of sensation like throat swelling, but RN noted no resp distress His Abx was changed to Clindamycin and he has been tolerating this without any problem Still C/O pain in his elbow and forearm No rash No diarrhea has good ROM R elbow No fever C/S MSSA and Strep Antibiotics Clindamycin Lines PIV Past Medical History Bipolar disorder previously on [place] PTSD Hepatitis C Past Surgical History L elbow joint clean out with drain placement 2014 L 5th digit repair as a child Allergies: Coded Allergies: Ancef (Verified Allergy, Severe, Itching, 02/16/17) Toradol (Verified Adverse Reaction, Intermediate, HIVES, 04/18/16) Tramadol (Verified Adverse Reaction, Intermediate, HIVES, 04/18/16) *MDRO Multi-Drug Resistant Organism (Verified Adverse Reaction, Unknown, ) MRSA (back wound) - 06/2015 MRSA (leg wound) - 08/2015 MRSA (knee wound) - 03/2016 Objective . Vital Signs Date Time Temp Pulse Resp B/P Pulse Ox O2 Delivery O2 Flow Rate FiO2 02/17/17 08:00 95.8 72 13 133/78 96 02/17/17 00:00 98.0 80 20 141/80 98 02/16/17 20:00 97.4 78 20 130/82 97 02/16/17 16:00 97.6 68 17 131/87 97 02/16/17 02/16/17 02/17/17 15:00 23:00 07:00 Intake Total 1680 ml 960 ml 720 ml Output Total 800 ml 800 ml 650 ml Balance 880 ml 160 ml 70 ml Intake Oral 1680 ml 960 ml 720 ml Output Urine Total 800 ml 800 ml 650 ml # Bowel Movements 0 0 0 . Laboratory Tests Test 02/16/17 04:34 White Blood Count 9.8 TH/MM3 Red Blood Count 4.86 MIL/MM3 Hemoglobin 15.0 GM/DL Hematocrit 45.1 % Mean Corpuscular Volume 92.8 FL Mean Corpuscular Hemoglobin 31.0 PG Mean Corpuscular Hemoglobin 33.4 % Concent Red Cell Distribution Width 14.2 % Platelet Count 244 TH/MM3 Mean Platelet Volume 9.1 FL Neutrophils (%) (Auto) 67.5 % Lymphocytes (%) (Auto) 15.8 % Monocytes (%) (Auto) 13.7 % Eosinophils (%) (Auto) 2.2 % Basophils (%) (Auto) 0.8 % Neutrophils # (Auto) 6.6 TH/MM3 Lymphocytes # (Auto) 1.5 TH/MM3 Monocytes # (Auto) 1.3 TH/MM3 Eosinophils # (Auto) 0.2 TH/MM3 Basophils # (Auto) 0.1 TH/MM3 CBC Comment DIFF FINAL Differential Comment Laboratory Tests Test 02/16/17 04:34 Sodium Level 137 MEQ/L Potassium Level 3.5 MEQ/L Chloride Level 101 MEQ/L Carbon Dioxide Level 27.7 MEQ/L Anion Gap 8 MEQ/L Blood Urea Nitrogen 5 MG/DL Creatinine 0.87 MG/DL Estimat Glomerular Filtration 99 ML/MIN Rate Random Glucose 95 MG/DL Calcium Level 8.9 MG/DL Imaging Ribs X-Ray 02/13/17942 Signed Impressions: Service Date/Time: January 10:37 - CONCLUSION: No definite displaced rib fractures. Rosa East MD Elbow X-Ray 02/13/1743 Signed Impressions: Service Date/Time: January 10:29 - CONCLUSION: Soft tissue swelling and no definite fracture for technique. Rosa East MD Elbow MRI 02/13/17 0000 Signed Impressions: Service Date/Time: January 14:55 - CONCLUSION: Small joint effusion and subcutaneous edema. Rosa East MD Physical Exam GENERAL: Awake and alert, NAD SKIN: No rashes, ecchymoses or lesions. Cool and dry. HEAD: Atraumatic. Normocephalic. No temporal or scalp tenderness. EYES: Pupils equal round and reactive. Extraocular motions intact. No scleral icterus. No injection or drainage. ENT: Nose without bleeding, purulent drainage or septal hematoma. Throat without erythema. Airway patent. NECK: Trachea midline. No JVD or lymphadenopathy. Supple, nontender, no meningeal signs. CARDIOVASCULAR: Regular rate and rhythm without murmurs, gallops, or rubs. RESPIRATORY: Clear to auscultation. Breath sounds equal bilaterally. No wheezes , rales, or rhonchi. GASTROINTESTINAL: Abdomen soft, non-tender, nondistended. MUSCULOSKELETAL: Right elbow seems to have less swelling, and has good ROM. There is a small wound over R olecranon which is now dry. Has several areas in his R elbow with scab,. There is an indurated tender area that is distal to his elbow NEUROLOGICAL: Awake and alert. Grossly non focal Psych: cooperative IV line sites with no e.o infection. Assessment & Plan Remarks Right elbow cellulitis Prob olecranon bursitis - C/S MSSA and Strep Clinically no evidence of septic joint Homelessness H/o trauma to the elbow while skate boarding prior to admission. Recs Continue IV Clindamycin Patient instructed to elevate his RUE Monitor progress Maia Pascual MD Feb 17, 2017 14:41
[2017-02-17] MEDS: ENOXAPARIN SODIUM 40 MG/0.4 ML SYRINGE SQ SCH (15:08)
[2017-02-17 16:00] VITALS: BP 110/64; PULSE 68; RESP 12; TEMP 97.1; O2SAT 96
[2017-02-17 20:00] VITALS: BP 130/84; PULSE 71; RESP 20; TEMP 98.4; O2SAT 98
[2017-02-17] MEDS: REMOVE OLD PATCH T-DERMAL SCH (20:27)
[2017-02-17 23:52] LABS: HCV RNA PCR IU/ML 267000 IU/mL (()); HCV RNA PCR LOGIU/ML 5.43 (())
[2017-02-18] VITALS: BP 124/78; PULSE 76; RESP 20; TEMP 97.2; O2SAT 97
[2017-02-18] MEDS: CLINDAMYCIN 600 MG/NS 100 ML IV SCH ×4 (01:10→06:19)
[2017-02-18] MEDS: ACETAMINOPHEN/HYDROcodone 325 MG/10 MG TAB PO PRN ×3 (01:12→12:06)
[2017-02-18] MEDS: MORPHINE SULFATE 4 MG/ML INJ IV PUSH PRN ×3 (02:18→14:23)
[2017-02-18] MEDS: SODIUM CHLORIDE 0.9% FLUSH 10 ML FLUSH IV FLUSH PRN (02:19)
[2017-02-18 05:18] LABS: AUTOMATED NEUTROPHIL # 3.5 TH/MM3 (1.8-7.7); BASOPHIL # 0.1 TH/MM3 (0-0.2); BASOPHIL % 1.4 % (0.0-2.0); EOSINOPHIL # 0.3 TH/MM3 (0-0.4); EOSINOPHIL % 4.6 % (0.0-4.0); HEMATOCRIT 47.1 % (39.0-51.0); HEMO FLAGS DIFF FINAL; LYMPH % 27.3 % (9.0-44.0); MEAN CELL VOLUME 92.1 FL (80.0-100.0); MEAN CORPUSCULAR HEMOGLOBIN 31.1 PG (27.0-34.0); MEAN CORPUSCULAR HGB CONC 33.8 % (32.0-36.0); MONO % 18.6 % (0.0-8.0); NEUT % 48.1 % (16.0-70.0); PLATELET COUNT 271 TH/MM3 (150-450); RED BLOOD COUNT 5.12 MIL/MM3 (4.50-5.90); RED CELL DISTRIBUTION WIDTH 14.5 % (11.6-17.2); WHITE BLOOD COUNT 7.2 TH/MM3 (4.0-11.0)
[2017-02-18 05:33] LABS: ALT (GPT) 137 U/L (12-78); ANION GAP 7 MEQ/L (5-15); AST (GOT) 83 U/L (15-37); BLOOD UREA NITROGEN 9 MG/DL (7-18); CHLORIDE 102 MEQ/L (98-107); GLOMERULAR FILTRATION RATE 104 ML/MIN (>89); SODIUM (NA) 137 MEQ/L (136-145)
[2017-02-18 05:35] LABS: ALKALINE PHOSPHATASE 112 U/L (45-117); TOTAL BILIRUBIN ADULT 0.8 MG/DL (0.2-1.0)
[2017-02-18] MEDS: NICOTINE 21 MG/24 HR PATCH T-DERMAL SCH (07:37)
[2017-02-18] MEDS: SODIUM CHLORIDE 0.9% FLUSH 10 ML FLUSH IV FLUSH SCH (07:37)
[2017-02-18 08:00] VITALS: BP 104/64; PULSE 65; RESP 16; TEMP 97; O2SAT 95
--- NOTE | 2017-02-18 10:19 | HHI.FPPN ---
Subjective Remarks Patient seen and examined this am. Vitals are stable and he is afebrile. Reports improvement in elbow swelling. Denies numbness or tingling of the fingers. Denies fevers and chills. Denies CP, SOB, or difficulty breathing. ( Stacey Silva MD R3) Objective Vitals Vital Signs Date Time Temp Pulse Resp B/P Pulse Ox O2 Delivery O2 Flow Rate FiO2 02/18/17 08:00 97.0 65 16 104/64 95 02/18/17 00:00 97.2 76 20 124/78 97 02/17/17 20:00 98.4 71 20 130/84 98 02/17/17 16:00 97.1 68 12 110/64 96 02/17/17 12:00 97.6 74 16 123/72 95 I/O 02/17/17 02/17/17 02/17/17 02/18/17 02/18/17 02/18/17 07:00 15:00 23:00 07:00 15:00 23:00 Intake Total 720 ml 1480 ml 720 ml 460 ml Output Total 650 ml 650 ml Balance 70 ml 1480 ml 720 ml -190 ml Intake Oral 720 ml 1480 ml 720 ml 460 ml Output Urine Total 650 ml 650 ml # Voids 4 # Bowel Movements 0 0 (Stacey Silva MD R3) Result Diagram: 02/18/175 02/18/17 045 Imaging Last Impressions Ribs X-Ray 02/13/17942 Signed Impressions: Service Date/Time: January 10:37 - CONCLUSION: No definite displaced rib fractures. Rosa East MD Elbow X-Ray 02/13/17942 Signed Impressions: Service Date/Time: January 10:29 - CONCLUSION: Soft tissue swelling and no definite fracture for technique. Rosa East MD Elbow MRI 02/13/17 0000 Signed Impressions: Service Date/Time: January 14:55 - CONCLUSION: Small joint effusion and subcutaneous edema. Rosa East MD Objective Remarks GENERAL: WNWD CM lying in bed in NAD SKIN: Warm and dry. Sun tanned with multiple areas of sun carpio. See below for extremity findings. Small 1cm area of skin trauma on R ear from fall. CARDIOVASCULAR: Regular rate and rhythm without murmurs, gallops, or rubs. RESPIRATORY: Continued inspiratory and expiratory wheezes bilaterally. No rales or rhonchi. No increased WOB. GASTROINTESTINAL: Abdomen soft, non-tender, nondistended with +BS. No masses appreciated. MUSCULOSKELETAL: No cyanosis or BL calf tenderness. 2+ pulses in all 4 extremities. RUE: Elbow covered with gauze dressing, which is clean dry and intact. Improving erythema and swelling. Elbow with improved ROM to full extension with minimal pain. LLE: 2 areas of erythematous, circular/elliptical areas surrounding eschars outlined with the most proximal measuring 7.5x4.5cm and the other 7cmx3.5cm both appear to be healing well. No other deformities of the LLE. ROM, strength, and sensation intact and WNL. NEUROLOGICAL: Awake and alert. Normal speech and judgement. (Stacey Silva MD R3 ) A/P Assessment and Plan Mr. Lacy is a 36 y/o M with a PMHx of bipolar disorder, PTSD, and hepatitis C admitted for cellulitis of RUE s/p skateboard fall Discharge Planning Anticipate discharge once pt has been transitioned to oral antibiotics. Infectious disease consulted (Stacey Silva MD R3) Attending Attestation Patient examined and case discussed with resident physicians I have read the above note and agree with the assessment/plan is discussed with me I was involved in all medical decision making for this patient Gage Montero M.D. (Gage Montero MD) Problem List: (1) Cellulitis of right upper extremity Status: Acute Plan: Patient with history of MRSA who is admitted for cellulitis and bursitis of RUE. Wound culture positive for S. aureus and GAS, sensitive to Clindamycin Pt encouraged to elevate right upper extremity to help improve edema -ID consulted, Dr. Plummer. Appreciate expertise. * Discontinue IV Vancomycin (02/13-02/16) * Clindamycin 600mg IV Q6H (02/16- ) * Follow cultures -Orthopedic surgery consulted, Dr. Goodwin, appreciate recommendations * No indication for surgical intervention at this time. * Continue to monitor clinical course - Blood cultures: NGTD Pain Medications: - [place] 5mg for pain 1-5. Increase to [place] 10mg for pain 6-10, and Morphine 2mg Q3H for breakthrough pain (2) Elbow injury Status: Acute Plan: S/p fall off of skateboard. X-ray of elbow and ribs negative for fracture See plan above (3) Hepatitis C Status: Chronic Plan: Hep C ab positive, treatment naive - Viral load and genotype pending - We'll discuss with patient possible GI evaluation as outpatient (4) Co-occurrence of multiple psychiatric disorders Status: Acute Plan: Patient with PTSD and Bipolar disorder per chart review. Patient previously on [place]. Currently he has not been taking his [place] as he has been unable to follow up with his PCP. Medical team will defer starting [place] as patient has appropriate behavior and mood. -[place] level: <0.1 (5) COPD (chronic obstructive pulmonary disease) Status: Chronic Plan: Pt with inspiratory and expiratory wheezing, history significant for tobacco abuse. Pt likely with history of COPD. -Albuterol 2.5mg Neb q4h PRN -Nicotine patch -Smoking cessation encouraged -Incentive spirometry, Resp CPT, and Acapella ordered (6) Nutrition, metabolism, and development symptoms Status: Acute Plan: Fluids: HLIV pt tolerating PO Diet: Regular diet as tolerated Electrolytes: WNL DVT: Lovenox daily (Stacey Silva MD R3) Problem Qualifiers (1) Hepatitis C: Qualified Code: B18.2 - Chronic hepatitis C without hepatic coma Stacey Silva MD R3 Feb 18, 2017 10:19 Gage Montero MD Feb 18, 2017 16:14
[2017-02-18 12:00] VITALS: BP 128/67; PULSE 70; RESP 16; TEMP 96.8; O2SAT 98
[2017-02-18] MEDS: ENOXAPARIN SODIUM 40 MG/0.4 ML SYRINGE SQ SCH (13:00)
--- NOTE | 2017-02-18 13:54 | HHI.IDPN ---
Subjective Subjective Remarks is a 36 y/o CF with PMHx of multiple hospitalizations for abscesses, cellulitis. ? septic arthritis. He presents to the ED with a red, swollen right elbow that is draining purulent material after a fall from a skateboard last night. He states that he was on his skateboard yesterday evening at approximately 5 PM when he "tripped and fell" scraping his elbow and hitting his ribs on the right side. Notes reviewed Had problems with Ancef over the weekend - complained of sensation like throat swelling, but RN noted no resp distress His Abx was changed to Clindamycin and he has been tolerating this without any problem Still C/O pain in his elbow and forearm No rash No diarrhea has good ROM R elbow No fever C/S MSSA and Strep Antibiotics Clindamycin Lines PIV Past Medical History Bipolar disorder previously on [place] PTSD Hepatitis C Past Surgical History L elbow joint clean out with drain placement 2014 L 5th digit repair as a child Allergies: Coded Allergies: Ancef (Verified Allergy, Severe, Itching, 02/16/17) Toradol (Verified Adverse Reaction, Intermediate, HIVES, 04/18/16) Tramadol (Verified Adverse Reaction, Intermediate, HIVES, 04/18/16) *MDRO Multi-Drug Resistant Organism (Verified Adverse Reaction, Unknown, ) MRSA (back wound) - 06/2015 MRSA (leg wound) - 08/2015 MRSA (knee wound) - 03/2016 Objective . Vital Signs Date Time Temp Pulse Resp B/P Pulse Ox O2 Delivery O2 Flow Rate FiO2 02/18/17 12:00 96.8 70 16 128/67 98 02/18/17 08:00 97.0 65 16 104/64 95 02/18/17 00:00 97.2 76 20 124/78 97 02/17/17 20:00 98.4 71 20 130/84 98 02/17/17 16:00 97.1 68 12 110/64 96 02/17/17 02/17/17 02/18/17 15:00 23:00 07:00 Intake Total 1480 ml 720 ml 460 ml Output Total 650 ml Balance 1480 ml 720 ml -190 ml Intake Oral 1480 ml 720 ml 460 ml Output Urine Total 650 ml # Voids 4 # Bowel Movements 0 . Laboratory Tests Test 02/18/17 04:55 White Blood Count 7.2 TH/MM3 Red Blood Count 5.12 MIL/MM3 Hemoglobin 15.9 GM/DL Hematocrit 47.1 % Mean Corpuscular Volume 92.1 FL Mean Corpuscular Hemoglobin 31.1 PG Mean Corpuscular Hemoglobin 33.8 % Concent Red Cell Distribution Width 14.5 % Platelet Count 271 TH/MM3 Mean Platelet Volume 8.6 FL Neutrophils (%) (Auto) 48.1 % Lymphocytes (%) (Auto) 27.3 % Monocytes (%) (Auto) 18.6 % Eosinophils (%) (Auto) 4.6 % Basophils (%) (Auto) 1.4 % Neutrophils # (Auto) 3.5 TH/MM3 Lymphocytes # (Auto) 2.0 TH/MM3 Monocytes # (Auto) 1.3 TH/MM3 Eosinophils # (Auto) 0.3 TH/MM3 Basophils # (Auto) 0.1 TH/MM3 CBC Comment DIFF FINAL Differential Comment Laboratory Tests Test 02/18/17 04:55 Sodium Level 137 MEQ/L Potassium Level 4.0 MEQ/L Chloride Level 102 MEQ/L Carbon Dioxide Level 28.0 MEQ/L Anion Gap 7 MEQ/L Blood Urea Nitrogen 9 MG/DL Creatinine 0.83 MG/DL Estimat Glomerular Filtration 104 ML/MIN Rate Random Glucose 97 MG/DL Calcium Level 8.9 MG/DL Total Bilirubin 0.8 MG/DL Aspartate Amino Transf 83 U/L (AST/SGOT) Alanine Aminotransferase 137 U/L (ALT/SGPT) Alkaline Phosphatase 112 U/L Total Protein 7.6 GM/DL Albumin 3.0 GM/DL Imaging Ribs X-Ray 02/13/17942 Signed Impressions: Service Date/Time: January 10:37 - CONCLUSION: No definite displaced rib fractures. Rosa East MD Elbow X-Ray 02/13/1743 Signed Impressions: Service Date/Time: January 10:29 - CONCLUSION: Soft tissue swelling and no definite fracture for technique. Rosa East MD Elbow MRI 02/13/17 0000 Signed Impressions: Service Date/Time: January 14:55 - CONCLUSION: Small joint effusion and subcutaneous edema. Rosa East MD Physical Exam GENERAL: Awake and alert, NAD SKIN: No rashes, ecchymoses or lesions. Cool and dry. HEAD: Atraumatic. Normocephalic. No temporal or scalp tenderness. EYES: Pupils equal round and reactive. Extraocular motions intact. No scleral icterus. No injection or drainage. ENT: Nose without bleeding, purulent drainage or septal hematoma. Throat without erythema. Airway patent. NECK: Trachea midline. No JVD or lymphadenopathy. Supple, nontender, no meningeal signs. CARDIOVASCULAR: Regular rate and rhythm without murmurs, gallops, or rubs. RESPIRATORY: Clear to auscultation. Breath sounds equal bilaterally. No wheezes , rales, or rhonchi. GASTROINTESTINAL: Abdomen soft, non-tender, nondistended. MUSCULOSKELETAL: Right elbow seems to have less swelling, and has good ROM. There is a small wound over R olecranon which is now dry. Has several areas in his R elbow with scab,. There is an indurated tender area that is distal to his elbow. Overall 90 percent improved compared to admission. NEUROLOGICAL: Awake and alert. Grossly non focal Psych: cooperative IV line sites with no e.o infection. Assessment & Plan Remarks Right elbow cellulitis Prob olecranon bursitis - C/S MSSA and Strep Clinically no evidence of septic joint Homelessness H/o trauma to the elbow while skate boarding prior to admission. Recs Discharge home on oral clinda for 2 weeks Probiotics on discharge alona Omalley. Counseled pt to adhere to regimen and if diarrhea then to go to PCP or come to ED. Also counseled if worsening noted in elbow to come back to ED. Patient instructed to elevate his RUE but not compliant. Will sign off please call back if any change in clinical condition or questions. Linh Plummer MD Feb 18, 2017 13:54
[2017-02-18] MEDS ORDERED: CLINDAMYCIN 150 MG CAP PO SCH (14:00)
[2017-02-18] MEDS ORDERED: CLIN150 PO (14:07)
[2017-02-18] MEDS ORDERED: HYDR-3583 PO (14:07)
[2017-02-18] MEDS ORDERED: SACC1CAP3 PO (14:07)
--- NOTE | 2017-02-18 14:08 | HHI.DCPOC ---
Discharge Care Plan Diagnosis: (1) Olecranon bursitis (2) Cellulitis Goals to Promote Your Health * To prevent worsening of your condition and complications * To maintain your health at the optimal level Directions to Meet Your Goals Take your medications as prescribed Follow your dietary instruction Follow activity as directed Keep your appointments as scheduled Take your immunizations and boosters as scheduled If your symptoms worsen call your PCP, if no PCP go to Urgent Care Center or Emergency Room Smoking is Dangerous to Your Health. Avoid second hand smoke Call the 24-hour hour crisis hotline for domestic abuse at Peggy Patrick MD Feb 18, 2017 14:08
--- NOTE | 2017-03-13 06:53 | HHI.DS ---
Discharge Summary Admission Date Feb 13, 2017 at 12:27 Discharge Date: Feb 18, 2017 Admitting Diagnosis cellulitis (1) Cellulitis of right upper extremity Diagnosis: Principal Plan: Patient with history of MRSA who is admitted for cellulitis and bursitis of RUE. Wound culture positive for S. aureus and GAS, sensitive to Clindamycin Pt encouraged to elevate right upper extremity to help improve edema -ID consulted, Dr. Plummer. Appreciate expertise. * Discontinue IV Vancomycin (02/13-02/16) * Clindamycin 600mg IV Q6H (02/16- ) * Follow cultures -Orthopedic surgery consulted, Dr. Goodwin, appreciate recommendations * No indication for surgical intervention at this time. * Continue to monitor clinical course - Blood cultures: NGTD Pain Medications: - [place] 5mg for pain 1-5. Increase to [place] 10mg for pain 6-10, and Morphine 2mg Q3H for breakthrough pain (2) Elbow injury Diagnosis: Principal Plan: S/p fall off of skateboard. X-ray of elbow and ribs negative for fracture See plan above (3) Hepatitis C Diagnosis: Secondary Plan: Hep C ab positive, treatment naive - Viral load and genotype pending - We'll discuss with patient possible GI evaluation as outpatient (4) Co-occurrence of multiple psychiatric disorders Diagnosis: Secondary Plan: Patient with PTSD and Bipolar disorder per chart review. Patient previously on [place]. Currently he has not been taking his [place] as he has been unable to follow up with his PCP. Medical team will defer starting [place] as patient has appropriate behavior and mood. -[place] level: <0.1 (5) COPD (chronic obstructive pulmonary disease) Diagnosis: Secondary Plan: Pt with inspiratory and expiratory wheezing, history significant for tobacco abuse. Pt likely with history of COPD. -Albuterol 2.5mg Neb q4h PRN -Nicotine patch -Smoking cessation encouraged -Incentive spirometry, Resp CPT, and Acapella ordered (6) Nutrition, metabolism, and development symptoms Diagnosis: Secondary Plan: Fluids: HLIV pt tolerating PO Diet: Regular diet as tolerated Electrolytes: WNL DVT: Lovenox daily Consultants Orthopedic surgery Infectious disease Brief History 36-year-old male with several previous hospitalizations for abscesses and cellulitis presents to the emergency department with a red, swollen right elbow that is draining purulent material after a fall from a skateboard last night. He states that he was on his skateboard yesterday evening at approximately 5 PM when he "tripped and fell" scraping his elbow and hitting his ribs on the right side. He had some bleeding from the right elbow and soreness of the right ribs but was able to walk away from the fall. He woke up this morning with a significantly swollen and painful right elbow that was draining purulent material that had soaked through his sweatshirt. He was unable to straighten the elbow and subjectively felt chills and therefore presented to the emergency department. He has history of multiple skin infections including a prepatellar abscess that required interventional radiology drainage with subsequent culture of the fluid growing MRSA. He has several other areas of abrasions and skin wounds/scabs on his upper and lower extremities in various stages of healing that he states have become a bit more swollen and red/erythematous overnight. Imaging Last Impressions Ribs X-Ray 02/13/1743 Signed Impressions: Service Date/Time: January 10:37 - CONCLUSION: No definite displaced rib fractures. Rosa East MD Elbow X-Ray 02/13/17 0943 Signed Impressions: Service Date/Time: January 10:29 - CONCLUSION: Soft tissue swelling and no definite fracture for technique. Rosa East MD Elbow MRI 02/13/17 0000 Signed Impressions: Service Date/Time: January 14:55 - CONCLUSION: Small joint effusion and subcutaneous edema. Rosa East MD PE at Discharge GENERAL: WNWD CM lying in bed in NAD SKIN: Warm and dry. Sun tanned with multiple areas of sun carpio. See below for extremity findings. Small 1cm area of skin trauma on R ear from fall. CARDIOVASCULAR: Regular rate and rhythm without murmurs, gallops, or rubs. RESPIRATORY: Continued inspiratory and expiratory wheezes bilaterally. No rales or rhonchi. No increased WOB. GASTROINTESTINAL: Abdomen soft, non-tender, nondistended with +BS. No masses appreciated. MUSCULOSKELETAL: No cyanosis or BL calf tenderness. 2+ pulses in all 4 extremities. RUE: Elbow covered with gauze dressing, which is clean dry and intact. Improving erythema and swelling. Elbow with improved ROM to full extension with minimal pain. LLE: 2 areas of erythematous, circular/elliptical areas surrounding eschars outlined with the most proximal measuring 7.5x4.5cm and the other 7cmx3.5cm both appear to be healing well. No other deformities of the LLE. ROM, strength, and sensation intact and WNL. NEUROLOGICAL: Awake and alert. Normal speech and judgement. Hospital Course Infectious disease and orthopedic surgery was consulted for possibly septic bursitis. It was determined the patient did not require surgical intervention. He was started on vancomycin and continued on clindamycin. The patient showed clinical improvement and was discharged on by mouth clindamycin. Pt Condition on Discharge: Fair Discharge Disposition: Discharge Home Discharge Instructions DIET: Follow Instructions for: As Tolerated, No Restrictions Activities you can perform: Regular-No Restrictions Follow up Referrals: PCP Follow-up - 1 Week New Medications: Saccharomyces Boulardii (Probiotic) 250 Mg Cap 250 MG PO BID Nutritional Supplement #28 Ref 0 CAP Clindamycin (Cleocin) 150 Mg Cap 450 MG PO Q6H #56 Ref 0 CAP Hydrocodone-Acetaminophen (Hydrocodone-Acetaminophen) 10-325 mg Tab 1 TAB PO Q4H PRN PAIN SCALE 5 TO 10 #30 Ref 0 TAB Thor Wetzel MD R2 March 13, 2017 06:53
== END 2017-02-18 16:34 | disposition home or self-care (01) | DRG 558 ==
LOC: NEPD 09:17 → NEDA 11:28 → OBSVTOIN 12:27 → N07A 15:43
PROVIDERS: ADMIT Family Medicine; ATTEND Family Medicine
DX: M71.121 Other infective bursitis, right elbow (principal); E87.1 Hypo-osmolality and hyponatremia; L03.113 Cellulitis of right upper limb; B18.2 Chronic viral hepatitis C; F31.9 Bipolar disorder, unspecified; L98.9 Disorder of the skin and subcutaneous tissue, unspecified; Z59.0 Homelessness; Z86.14 Personal history of Methicillin resistant Staphylococcus aureus infection; F43.10 Post-traumatic stress disorder, unspecified; V00.131A Fall from skateboard, initial encounter; Y93.51 Activity, roller skating (inline) and skateboarding; F17.210 Nicotine dependence, cigarettes, uncomplicated; J44.9 Chronic obstructive pulmonary disease, unspecified; Y90.0 Blood alcohol level of less than 20 mg/100 ml; A49.01 Methicillin susceptible Staphylococcus aureus infection, unspecified site; B95.5 Unspecified streptococcus as the cause of diseases classified elsewhere
CPT/HCPCS: 71101; 73080; 73223; 80048; 80053; 80074; 80178; 80202; 80307; 85007; 85025; 85027; 85652; 86140; 86403; 87040; 87070; 87147; 87186; 87205; 87522; 87902; 94150; 94664; 94667; 96374; A9579; J0690; J1650; J2270; J2543; J3370; J7030; J7040; J7613; Q0163

== ENCOUNTER 2017-05-07 08:54 | Emergency (ER) | payer SELFPAY ==
[~2017-05-07] VITALS: Ht 177.8 cm; Wt 82.0 kg
[~2017-05-07 08:54] MED LIST changes: -ALBU8I INH; +CLIN150 PO; -FOLI1 PO; +HYDR-3583 PO; -LITH300 PO; -NICO14DI18 TD; +SACC1CAP3 PO; -THIA100T PO; -ZYVO600T PO
[2017-05-07 08:55] VITALS: BP 123/67; PULSE 100; RESP 24; TEMP 97.9; O2SAT 94
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
[2017-05-07] MEDS ORDERED: SODIUM CHLOR 0.9% 1000 ML INJ 1,000 ML IV ONE (09:45)
[2017-05-07] MEDS ORDERED: SILVER SULFADIAZINE 1% CR 400 GM JAR TOPICAL ONE (10:15)
[2017-05-07 10:19] LABS: AUTOMATED NEUTROPHIL # 7.2 TH/MM3 (1.8-7.7); BASOPHIL # 0.1 TH/MM3 (0-0.2); BASOPHIL % 0.8 % (0.0-2.0); EOSINOPHIL # 0.1 TH/MM3 (0-0.4); HEMATOCRIT 46.7 % (39.0-51.0); HEMO FLAGS DIFF FINAL; LYMPH % 33.4 % (9.0-44.0); LYMPHOCYTE # 4.5 TH/MM3 (1.0-4.8); MEAN CELL VOLUME 90.6 FL (80.0-100.0); MEAN CORPUSCULAR HEMOGLOBIN 31.2 PG (27.0-34.0); MEAN CORPUSCULAR HGB CONC 34.4 % (32.0-36.0); MONO % 11.2 % (0.0-8.0); NEUT % 53.6 % (16.0-70.0); PLATELET COUNT 183 TH/MM3 (150-450); RED BLOOD COUNT 5.15 MIL/MM3 (4.50-5.90); RED CELL DISTRIBUTION WIDTH 13.9 % (11.6-17.2); WHITE BLOOD COUNT 13.3 TH/MM3 (4.0-11.0)
[2017-05-07 10:24] LABS: ANION GAP 11 MEQ/L (5-15); BLOOD UREA NITROGEN 5 MG/DL (7-18); CHLORIDE 104 MEQ/L (98-107); GLOMERULAR FILTRATION RATE 161 ML/MIN (>89); POTASSIUM 3.4 MEQ/L (3.5-5.1); SODIUM (NA) 138 MEQ/L (136-145)
[2017-05-07 10:26] LABS: ALT (GPT) 118 U/L (12-78); AST (GOT) 145 U/L (15-37)
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
[2017-05-07 10:28] LABS: ALKALINE PHOSPHATASE 86 U/L (45-117); TOTAL BILIRUBIN ADULT 0.9 MG/DL (0.2-1.0)
[2017-05-07] MEDS ORDERED: CLINDAMYCIN INJ 600 MG in SODIUM CHLORIDE 0.9% INJ 100 ML IV ONE (11:00)
[2017-05-07] MEDS ORDERED: CEPH-460 PO (12:07)
[2017-05-07] MEDS ORDERED: BACT800T5 PO (12:07)
== END 2017-05-07 14:04 | disposition home or self-care (01) ==
LOC: NEPD 08:54
DX: T22.212A Burn of second degree of left forearm, initial encounter (principal); T23.071A Burn of unspecified degree of right wrist, initial encounter; F10.129 Alcohol abuse with intoxication, unspecified; J45.909 Unspecified asthma, uncomplicated; F31.9 Bipolar disorder, unspecified; F41.9 Anxiety disorder, unspecified; Z72.0 Tobacco use; X17.XXXA Contact with hot engines, machinery and tools, initial encounter
CPT/HCPCS: 16020; 80053; 80307; 85025; 96361; 96365; 99284; J7030

== ENCOUNTER 2017-05-07 15:20 | Emergency (ER) | payer SELFPAY ==
[~2017-05-07 15:20] MED LIST changes: +BACT800T5 PO; +CEPH-460 PO
[2017-05-07 15:27] VITALS: BP 129/74; PULSE 99; RESP 18; TEMP 98.3; O2SAT 98
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
== END 2017-05-07 18:05 | disposition left against medical advice (07) ==
LOC: NEPK 15:20
DX: L03.114 Cellulitis of left upper limb (principal); J45.909 Unspecified asthma, uncomplicated; F31.9 Bipolar disorder, unspecified; F41.9 Anxiety disorder, unspecified; Z72.0 Tobacco use; Z79.899 Other long term (current) drug therapy; Z88.5 Allergy status to narcotic agent; Z88.8 Allergy status to other drugs, medicaments and biological substances
CPT/HCPCS: 99281

== ENCOUNTER 2017-05-12 22:58 | Inpatient (IN) | payer SELFPAY ==
[~2017-05-12] VITALS: Ht 177.8 cm; Wt 80.9 kg
[~2017-05-12 22:58] MED LIST changes: -CLIN150 PO; -HYDR-3583 PO; -SACC1CAP3 PO
[2017-05-12 23:04] VITALS: BP 149/94; PULSE 114; RESP 16; TEMP 99.4; O2SAT 97
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
[2017-05-13] VITALS (13 sets, daily range): BP systolic 117–143; BP diastolic 66–80; PULSE 74–107; RESP 15–20; TEMP 97.9–98.7; O2SAT 96–98
[2017-05-13] MEDS ORDERED: SILVER SULFADIAZINE 1% CR 400 GM JAR TOPICAL ONE
[2017-05-13] MEDS ORDERED: AZTREONAM INJ 2,000 MG in SODIUM CHLORIDE 0.9% INJ 100 ML IV ONE ×2
[2017-05-13] MEDS ORDERED: metroNIDAZOLE 500 MG INJ 100 ML IV ONE
[2017-05-13] MEDS ORDERED: SODIUM CHLOR 0.9% 1000 ML INJ 1,000 ML IV ONE
[2017-05-13] MEDS ORDERED: VANCOMYCIN INJ 1,000 MG in SODIUM CHLOR 0.9% 250 ML INJ 250 ML IV ONE ×2
--- NOTE | 2017-05-13 00:16 | RADRPT ---
EXAM DATE/TIME: 05/12/2017 23:49 [facility] COMPARISON: CHEST SINGLE AP, July 28, 2015, 19:36. INDICATIONS : Short of breath. MEDICAL HISTORY : None. SURGICAL HISTORY : None. ENCOUNTER: Initial ACUITY: 1 day PAIN SCORE: 0/10 LOCATION: Bilateral chest FINDINGS: A single view of the chest demonstrates the lungs to be symmetrically aerated without evidence of mas s, infiltrate or effusion. The cardiomediastinal contours are unremarkable. Osseous structures are intact. CONCLUSION: Normal examination for a patient of this age. No significant change has occurred. Gage Wells MD on May 13, 2017 at 0:14 Board Certified Radiologist. This report was verified electronically.
[2017-05-13 00:57] LABS: AUTOMATED NEUTROPHIL # 9.8 TH/MM3 (1.8-7.7); BASOPHIL # 0.1 TH/MM3 (0-0.2); BASOPHIL % 0.7 % (0.0-2.0); EOSINOPHIL # 0.1 TH/MM3 (0-0.4); EOSINOPHIL % 0.4 % (0.0-4.0); HEMATOCRIT 47.2 % (39.0-51.0); HEMO FLAGS DIFF FINAL; LYMPH % 23.2 % (9.0-44.0); LYMPHOCYTE # 3.6 TH/MM3 (1.0-4.8); MEAN CELL VOLUME 93.1 FL (80.0-100.0); MEAN CORPUSCULAR HEMOGLOBIN 31.9 PG (27.0-34.0); MEAN CORPUSCULAR HGB CONC 34.2 % (32.0-36.0); MONO % 12.4 % (0.0-8.0); NEUT % 63.3 % (16.0-70.0); PLATELET COUNT 254 TH/MM3 (150-450); RED BLOOD COUNT 5.07 MIL/MM3 (4.50-5.90); RED CELL DISTRIBUTION WIDTH 13.8 % (11.6-17.2); WHITE BLOOD COUNT 15.5 TH/MM3 (4.0-11.0)
[2017-05-13] MEDS ORDERED: ACETAMINOPHEN 325 MG TAB PO ONE (01:00)
[2017-05-13 01:07] LABS: INTERNATIONAL NORMALIZED RATIO 1.1 RATIO; PROTHROMBIN TIME - PATIENT 12.2 SEC (9.8-11.6)
--- NOTE | 2017-05-13 01:13 | RADRPT ---
EXAM DATE/TIME: 05/13/2017 00:45 [facility] COMPARISON: No previous studies available for comparison. INDICATIONS : Inflammation and infection. MEDICAL HISTORY : None. SURGICAL HISTORY : None. ENCOUNTER: Initial ACUITY: 1 day PAIN SCORE: 0/10 LOCATION: Left hand FINDINGS: Two view examination of the left hand demonstrates no soft tissue swelling, dislocation, or fracture. The joint spaces are maintained. Bony mineralization is normal. CONCLUSION: Normal examination for a patient of this age. Gage Wells MD on May 13, 2017 at 1:11 Board Certified Radiologist. This report was verified electronically.
--- NOTE | 2017-05-13 01:14 | RADRPT ---
EXAM DATE/TIME: 05/13/2017 00:46 [facility] COMPARISON: No previous studies available for comparison. INDICATIONS : Ankle pain, inflammation. MEDICAL HISTORY : None. SURGICAL HISTORY : None. ENCOUNTER: Initial ACUITY: 1 day PAIN SCORE: 0/10 LOCATION: Right ankle FINDINGS: Two view examination was performed of the right ankle. The bony structures are in normal alignment. No evidence of fracture, dislocation. There is mild soft tissue swelling at the ankle. No radiopaqu e foreign bodies are seen. Bony mineralization is normal. CONCLUSION: Mild soft tissue swelling.. Gage Wells MD on May 13, 2017 at 1:12 Board Certified Radiologist. This report was verified electronically.
[2017-05-13] MEDS ORDERED: DIPHTH/TETANUS/ACEL PERTUSSIS (BOOSTER) 0.5 ML VIAL/PFS IM ONE (01:15)
--- NOTE | 2017-05-13 01:15 | RADRPT ---
EXAM DATE/TIME: 05/13/2017 00:47 [facility] COMPARISON: No previous studies available for comparison. INDICATIONS : Foot pain, inflammation. MEDICAL HISTORY : None. SURGICAL HISTORY : None. ENCOUNTER: Initial ACUITY: 1 day PAIN SCORE: 0/10 LOCATION: Left foot FINDINGS: Three view examination of the left foot demonstrates no soft tissue swelling, dislocation, or fractur e. The tarsal bones appear intact. The interphalangeal and metatarsophalangeal joints are intact. The calcaneus is intact. Bony mineralization is normal. CONCLUSION: Unremarkable examination. Gage Wells MD on May 13, 2017 at 1:13 Board Certified Radiologist. This report was verified electronically.
[2017-05-13 01:21] LABS: ALKALINE PHOSPHATASE 99 U/L (45-117); TOTAL BILIRUBIN ADULT 0.6 MG/DL (0.2-1.0)
[2017-05-13 01:34] LABS: ALT (GPT) 187 U/L (12-78); ANION GAP 11 MEQ/L (5-15); AST (GOT) 135 U/L (15-37); BICARBONATE 25.2 MEQ/L (21.0-32.0); BLOOD UREA NITROGEN 8 MG/DL (7-18); CHLORIDE 98 MEQ/L (98-107); GLOMERULAR FILTRATION RATE 127 ML/MIN (>89); MAGNESIUM 2.2 MG/DL (1.5-2.5); POTASSIUM 3.2 MEQ/L (3.5-5.1); SODIUM (NA) 134 MEQ/L (136-145)
[2017-05-13] MEDS ORDERED: POTASSIUM CHLORIDE 20 MEQ CONTROLLED RELEASE TAB PO ONE (01:45)
[2017-05-13] MEDS ORDERED: THIAMINE HCL 100 MG TAB PO ONE (02:15)
[2017-05-13] MEDS ORDERED: LORazepam 2 MG/ML VIAL IV PUSH PRN (02:15)
[2017-05-13] MEDS ORDERED: Vancomycin Consult Pharmacy 1 EA OTHER SCH (02:15)
[2017-05-13] MEDS ORDERED: SODIUM CHLORIDE 0.9% FLUSH 10 ML FLUSH IV FLUSH PRN (02:15)
[2017-05-13] MEDS ORDERED: NALOXONE HCL 0.4 MG/ML AMP IV PRN (02:15)
[2017-05-13 04:16] LABS: AMPHETAMINE, URINE POS (NEG); BARBITURATES, URINE NEG (NEG); COCAINE, URINE POS (NEG)
[2017-05-13] MEDS: THIAMINE HCL 100 MG TAB PO SCH (08:00)
[2017-05-13] MEDS: SODIUM CHLORIDE 0.9% FLUSH 10 ML FLUSH IV FLUSH SCH ×2 (08:46→22:03)
[2017-05-13] MEDS: PIPERACIL-TAZO 4.5 GM PREMIX 100 ML IV SCH ×3 (08:46→22:03)
[2017-05-13] MEDS: VANCOMYCIN INJ 1,250 MG in SODIUM CHLOR 0.9% 250 ML INJ 250 ML IV SCH ×2 (09:29→17:30)
[2017-05-13] MEDS ORDERED: ACETAMINOPHEN 325 MG TAB PO PRN (10:45)
[2017-05-13 11:38] LABS: AUTOMATED NEUTROPHIL # 5.3 TH/MM3 (1.8-7.7); BASOPHIL # 0.1 TH/MM3 (0-0.2); BASOPHIL % 1.1 % (0.0-2.0); EOSINOPHIL # 0.2 TH/MM3 (0-0.4); EOSINOPHIL % 1.6 % (0.0-4.0); HEMATOCRIT 43.9 % (39.0-51.0); HEMO FLAGS DIFF FINAL; LYMPH % 31.6 % (9.0-44.0); LYMPHOCYTE # 3.3 TH/MM3 (1.0-4.8); MEAN CELL VOLUME 92.5 FL (80.0-100.0); MEAN CORPUSCULAR HEMOGLOBIN 32.8 PG (27.0-34.0); MEAN CORPUSCULAR HGB CONC 35.4 % (32.0-36.0); NEUT % 50.7 % (16.0-70.0); PLATELET COUNT 224 TH/MM3 (150-450); RED BLOOD COUNT 4.75 MIL/MM3 (4.50-5.90); RED CELL DISTRIBUTION WIDTH 14.2 % (11.6-17.2); WHITE BLOOD COUNT 10.5 TH/MM3 (4.0-11.0)
[2017-05-13 12:04] LABS: ALT (GPT) 136 U/L (12-78); ANION GAP 5 MEQ/L (5-15); AST (GOT) 89 U/L (15-37); BICARBONATE 27.3 MEQ/L (21.0-32.0); BLOOD UREA NITROGEN 9 MG/DL (7-18); CHLORIDE 106 MEQ/L (98-107); GLOMERULAR FILTRATION RATE 123 ML/MIN (>89); POTASSIUM 3.9 MEQ/L (3.5-5.1); SODIUM (NA) 138 MEQ/L (136-145)
[2017-05-13 12:05] LABS: ALKALINE PHOSPHATASE 78 U/L (45-117); TOTAL BILIRUBIN ADULT 0.8 MG/DL (0.2-1.0)
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
[2017-05-13] MEDS: ACETAMINOPHEN/HYDROcodone 325 MG/5 MG TAB PO PRN ×2 (15:54→22:04)
[2017-05-14] VITALS (7 sets, daily range): BP systolic 104–126; BP diastolic 60–79; PULSE 67–75; RESP 14–18; TEMP 97.4–98.6; O2SAT 96–98
[2017-05-14] MEDS: PIPERACIL-TAZO 4.5 GM PREMIX 100 ML IV SCH ×4 (03:38→20:06)
[2017-05-14] MEDS: ACETAMINOPHEN/HYDROcodone 325 MG/5 MG TAB PO PRN ×4 (04:10→19:31)
[2017-05-14] MEDS: VANCOMYCIN INJ 1,250 MG in SODIUM CHLOR 0.9% 250 ML INJ 250 ML IV SCH ×3 (04:13→18:32)
[2017-05-14 05:37] LABS: BASOPHIL # 0.1 TH/MM3 (0-0.2); BASOPHIL % 1.4 % (0.0-2.0); EOSINOPHIL # 0.2 TH/MM3 (0-0.4); HEMATOCRIT 44.5 % (39.0-51.0); HEMO FLAGS DIFF FINAL; LYMPH % 45.8 % (9.0-44.0); LYMPHOCYTE # 3.9 TH/MM3 (1.0-4.8); MEAN CORPUSCULAR HEMOGLOBIN 32.9 PG (27.0-34.0); MONO % 15.5 % (0.0-8.0); NEUT % 35.3 % (16.0-70.0); PLATELET COUNT 216 TH/MM3 (150-450); RED BLOOD COUNT 4.74 MIL/MM3 (4.50-5.90); RED CELL DISTRIBUTION WIDTH 14.3 % (11.6-17.2); WHITE BLOOD COUNT 8.6 TH/MM3 (4.0-11.0)
[2017-05-14 06:04] LABS: BICARBONATE 28.1 MEQ/L (21.0-32.0); POTASSIUM 3.8 MEQ/L (3.5-5.1)
[2017-05-14] MEDS: SODIUM CHLORIDE 0.9% FLUSH 10 ML FLUSH IV FLUSH SCH ×2 (09:00→20:06)
[2017-05-14] MEDS ORDERED: PHARMACY ORDERED LAB ONE (09:45)
[2017-05-14] MEDS: THIAMINE HCL 100 MG TAB PO SCH (10:09)
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
[2017-05-15] MEDS: VANCOMYCIN INJ 1,250 MG in SODIUM CHLOR 0.9% 250 ML INJ 250 ML IV SCH ×2 (01:28→10:00)
[2017-05-15] MEDS: PIPERACIL-TAZO 4.5 GM PREMIX 100 ML IV SCH ×2 (01:28→09:00)
[2017-05-15] MEDS: ACETAMINOPHEN/HYDROcodone 325 MG/5 MG TAB PO PRN ×2 (03:22→10:43)
[2017-05-15 04:45] VITALS: BP 109/56; PULSE 70; RESP 18; TEMP 98.3; O2SAT 96
[2017-05-15 08:00] VITALS: BP 122/76; PULSE 59; PULSE 70; RESP 16; TEMP 96; O2SAT 97
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
[2017-05-15] MEDS ORDERED: ENOXAPARIN SODIUM 40 MG/0.4 ML SYRINGE SQ SCH (10:00)
[2017-05-15] MEDS: THIAMINE HCL 100 MG TAB PO SCH (10:44)
[2017-05-15] MEDS: SODIUM CHLORIDE 0.9% FLUSH 10 ML FLUSH IV FLUSH SCH (10:46)
--- NOTE | 2017-05-15 11:45 | HHI.IDPN ---
Note Infectious Disease Note Patient without complaints. Afebrile. No distress. No chills, nausea or vomiting. Wound culture has MRSA and group A beta strep. PAST MEDICAL HISTORY 1. Hepatitis C. 2. Asthma. 3. Bipolar disorder. 4. Anxiety disorder. 5. MRSA. 6. Skin infections. ALLERGIES 1. TORADOL. 2. TRAMADOL. 3. ANCEF. ANTIBIOTICS 1. Vancomycin. 2. Piperacillin/tazobactam. OBJECTIVE: Vital Signs Date Time Temp Pulse Resp B/P Pulse Ox O2 Delivery O2 Flow Rate FiO2 05/15/17 08:00 96.0 59 16 122/76 97 05/15/17 04:45 98.3 70 18 109/56 96 05/15/17 04:22 18 05/14/17 23:11 98.3 75 17 122/62 96 05/14/17 15:57 70 05/14/17 14:52 97.7 73 14 120/60 98 05/14/17 12:40 97.4 68 14 126/79 96 Laboratory Tests Test 05/14/17 04:39 White Blood Count 8.6 TH/MM3 Red Blood Count 4.74 MIL/MM3 Hemoglobin 15.6 GM/DL Hematocrit 44.5 % Mean Corpuscular Volume 94.0 FL Mean Corpuscular Hemoglobin 32.9 PG Mean Corpuscular Hemoglobin 35.0 % Concent Red Cell Distribution Width 14.3 % Platelet Count 216 TH/MM3 Mean Platelet Volume 8.5 FL Neutrophils (%) (Auto) 35.3 % Lymphocytes (%) (Auto) 45.8 % Monocytes (%) (Auto) 15.5 % Eosinophils (%) (Auto) 2.0 % Basophils (%) (Auto) 1.4 % Neutrophils # (Auto) 3.0 TH/MM3 Lymphocytes # (Auto) 3.9 TH/MM3 Monocytes # (Auto) 1.3 TH/MM3 Eosinophils # (Auto) 0.2 TH/MM3 Basophils # (Auto) 0.1 TH/MM3 CBC Comment DIFF FINAL Differential Comment Laboratory Tests Test 05/14/17 04:39 Sodium Level 137 MEQ/L Potassium Level 3.8 MEQ/L Chloride Level 102 MEQ/L Carbon Dioxide Level 28.1 MEQ/L Anion Gap 7 MEQ/L Blood Urea Nitrogen 12 MG/DL Creatinine 0.66 MG/DL Estimat Glomerular Filtration 136 ML/MIN Rate Random Glucose 117 MG/DL Calcium Level 8.8 MG/DL Microbiology Date/Time Procedure Status Source Growth 05/12/17 23:50 Aerobic Blood Culture - Preliminary Resulted Blood Peripheral NO GROWTH IN 2 DAYS 05/12/17 23:50 Anaerobic Blood Culture - Preliminary Resulted Blood Peripheral NO GROWTH IN 2 DAYS 05/12/17 23:58 Aerobic Blood Culture - Preliminary Resulted Blood Peripheral NO GROWTH IN 2 DAYS 05/12/17 23:58 Anaerobic Blood Culture - Preliminary Resulted Blood Peripheral NO GROWTH IN 2 DAYS 05/12/17 23:58 Gram Stain - Final Complete Wound Hand 05/12/17 23:58 Wound Culture - Final Complete S. Aureus Mrsa Group A Beta Strep PHYSICAL EXAMINATION GENERAL: No acute distress. HEENT: No icterus. Oropharynx has no visible lesions. NECK: Supple without adenopathy. LUNGS: Clear to auscultation. HEART: Regular rate and rhythm without murmurs, rubs or gallops. EXTREMITIES: The left hand is less swollen. Ulcerated superficial skin breakdown at the base of the thumb has weepy exudate. Motion of the thumb is intact. Distal pulses are intact. SKIN: Diffuse erythematous hue. No diffuse rash. NEUROLOGIC: Nonfocal. PSYCHIATRIC: calm and good mood. IMPRESSION 1. Severe cellulitis of the left hand including the left thumb. improving. 2. Wound infection of the left hand. Post burn. MRSA and Group A strep. RECOMMENDATIONS 1. Stop vancomycin. 2. Stop piperacillin/tazobactam. 3. Discharge with PO Bactrim x 10 days 2 DS PO BID. 4. [facility]. 5. Dressing changes per wound care. Discussed with Dr. Goodwin. Okay to discharge. I will sign of now. Jevon Calvo MD May 15, 2017 11:45
[2017-05-15 12:00] VITALS: BP 112/70; PULSE 69; RESP 16; TEMP 96.7; O2SAT 97
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
[2017-05-15] MEDS ORDERED: BACT800T5 PO (13:05)
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
[2017-05-15] MEDS ORDERED: HYDR-3516 PO (13:32)
[2017-05-16] MEDS ORDERED: PHARMACY ORDERED LAB ONE (09:45)
== END 2017-05-15 15:33 | disposition home or self-care (01) | DRG 854 ==
LOC: NEPC 22:58 → NEDA 05-13 02:03 → INTOOBSV 05-13 02:03 → NEPHCDU 05-13 03:03 → OBSVTOIN 05-13 16:07
PROVIDERS: ADMIT Internal Medicine; ATTEND Internal Medicine
PROC: 0HBGXZZ Excision of Left Hand Skin, External Approach (ICD-10-PCS; principal; 2017-05-14)
PROC: 0HBEXZZ Excision of Left Lower Arm Skin, External Approach (ICD-10-PCS; 2017-05-14)
DX: A41.9 Sepsis, unspecified organism (principal); L03.114 Cellulitis of left upper limb; F14.10 Cocaine abuse, uncomplicated; T23.292A Burn of second degree of multiple sites of left wrist and hand, initial encounter; F15.10 Other stimulant abuse, uncomplicated; F31.9 Bipolar disorder, unspecified; F41.9 Anxiety disorder, unspecified; B95.62 Methicillin resistant Staphylococcus aureus infection as the cause of diseases classified elsewhere; B95.0 Streptococcus, group A, as the cause of diseases classified elsewhere; F17.210 Nicotine dependence, cigarettes, uncomplicated; X17.XXXA Contact with hot engines, machinery and tools, initial encounter; B18.2 Chronic viral hepatitis C; F10.10 Alcohol abuse, uncomplicated; Z86.14 Personal history of Methicillin resistant Staphylococcus aureus infection
CPT/HCPCS: 71010; 73120; 73600; 73630; 76937; 80048; 80053; 80202; 80307; 83605; 83690; 83735; 85025; 85610; 85730; 86140; 86403; 87040; 87070; 87147; 87186; 87205; 90471; 90715; 96365; 96367; J1650; J2543; J3370; J7030; J7050

== ENCOUNTER 2017-06-24 12:58 | Emergency (ER) | payer OTHER ==
[~2017-06-24] VITALS: Ht 177.8 cm; Wt 78.0 kg
[~2017-06-24 12:58] MED LIST changes: -CEPH-460 PO; +HYDR-3516 PO
[2017-06-24 13:11] VITALS: BP 135/79; PULSE 89; RESP 17; TEMP 98.1; O2SAT 98
[2017-06-24] MEDS ORDERED: LITH150C PO (13:20)
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
[2017-06-24 15:43] VITALS: BP 120/83; TEMP 97.8
== END 2017-06-24 15:42 | disposition home or self-care (01) ==
LOC: NEPD 12:58
DX: F10.129 Alcohol abuse with intoxication, unspecified (principal); J45.909 Unspecified asthma, uncomplicated; F31.9 Bipolar disorder, unspecified; F41.9 Anxiety disorder, unspecified; F17.200 Nicotine dependence, unspecified, uncomplicated; Z86.19 Personal history of other infectious and parasitic diseases; Z79.899 Other long term (current) drug therapy
CPT/HCPCS: 99281

== ENCOUNTER 2017-07-13 16:25 | Emergency (ER) | payer SELFPAY ==
[~2017-07-13] VITALS: Ht 177.8 cm; Wt 85.0 kg
[~2017-07-13 16:25] MED LIST changes: -BACT800T5 PO; -HYDR-3516 PO; +LITH150C PO
[2017-07-13 16:35] VITALS: BP 124/78; PULSE 75; RESP 16; TEMP 98.3; O2SAT 91
[2017-07-13] MEDS ORDERED: SODIUM CHLORIDE 0.9% FLUSH 10 ML FLUSH IVF PRN (17:00)
[2017-07-13 17:33] VITALS: BP 126/81; PULSE 72; RESP 16; O2SAT 95
--- NOTE | 2017-07-13 17:47 | RADRPT ---
EXAM DATE/TIME: 07/13/2017 17:15 [facility] COMPARISON: CT BRAIN W/O CONTRAST, April 04, 2015, 14:16. INDICATIONS : Altered mental status.Possible seizure today. RADIATION DOSE: 34.75 CTDIvol (mGy) MEDICAL HISTORY : Hepatitis C. anxiety, bipolar, substance abuse. SURGICAL HISTORY : None. ENCOUNTER: Initial ACUITY: 1 day PAIN SCALE: 0/10 LOCATION: cranial TECHNIQUE: Multiple contiguous axial images were obtained of the head. Using automated exposure control and adj ustment of the mA and/or kV according to patient size, radiation dose was kept as low as reasonably a chievable to obtain optimal diagnostic quality images. DICOM format image data is available electro nically for review and comparison. FINDINGS: CEREBRUM: The ventricles are normal for age. No evidence of midline shift, mass lesion, hemorrhage or acute in farction. No extra-axial fluid collections are seen. POSTERIOR FOSSA: The cerebellum and brainstem are intact. The 4th ventricle is midline. The cerebellopontine angle i s unremarkable. EXTRACRANIAL: Mucoperiosteal thickening seen of the visualized right maxillary air cell. SKULL: The calvaria is intact. No evidence of skull fracture. CONCLUSION: No acute intracranial abnormality. Right maxillary sinus disease. Chuy Mason MD on July 13, 2017 at 17:44 Board Certified Radiologist. This report was verified electronically.
[2017-07-13 17:51] LABS: AUTOMATED NEUTROPHIL # 2.7 TH/MM3 (1.8-7.7); BASOPHIL # 0.1 TH/MM3 (0-0.2); BASOPHIL % 1.4 % (0.0-2.0); EOSINOPHIL # 0.2 TH/MM3 (0-0.4); EOSINOPHIL % 2.6 % (0.0-4.0); HEMATOCRIT 51.6 % (39.0-51.0); HEMO FLAGS DIFF FINAL; LYMPH % 52.2 % (9.0-44.0); LYMPHOCYTE # 3.7 TH/MM3 (1.0-4.8); MEAN CORPUSCULAR HEMOGLOBIN 32.1 PG (27.0-34.0); MEAN CORPUSCULAR HGB CONC 34.5 % (32.0-36.0); MONO % 5.9 % (0.0-8.0); NEUT % 37.9 % (16.0-70.0); PLATELET COUNT 232 TH/MM3 (150-450); RED BLOOD COUNT 5.55 MIL/MM3 (4.50-5.90); RED CELL DISTRIBUTION WIDTH 13.3 % (11.6-17.2); WHITE BLOOD COUNT 7.1 TH/MM3 (4.0-11.0)
--- NOTE | 2017-07-13 17:52 | PD ---
HPI Chief Complaint: Seizure Time Seen by Provider: 17:00 Travel History International Travel<30 days: No Contact w/Intl Traveler<30days: No Traveled to known affect area: No History of Present Illness HPI This is a 37-year-old male history of alcoholism, alcohol related seizures, presents after having a witnessed seizure. The patient states he felt it coming on and lowered himself to the ground. The patient reports drinking a large amount of alcohol today. He denies any head neck chest abdomen pain. Patient states that he's had 9 4 packs of beer and a bottle of vodka today. He denies any seizure medications. There are no other complaints time my examination. PFSH Past Medical History Hx Anticoagulant Therapy: No Asthma: Yes Bipolar Disorder: Yes Anxiety: Yes Depression: No Cardiovascular Problems: No Cerebrovascular Accident: No Diminished Hearing: No Endocrine: No Gastrointestinal Disorders: No Genitourinary: No Headaches: No Hepatitis: Yes (C) Immune Disorder: No Implanted Vascular Access Dvce: No Musculoskeletal: No Neurologic: No Psychiatric: Yes Reproductive: No Respiratory: Yes (smoker, denies asthma. pt used to have inhaler-denies further use) Immunizations Current: Yes Migraines: No Radiation Therapy: No Seizures: No ?: Unknown Past Surgical History Abdominal Surgery: No Cardiac Surgery: No Ear Surgery: No Endocrine Surgery: No Eye Surgery: No Genitourinary Surgery: No Gynecologic Surgery: No Hysterectomy: No Neurologic Surgery: No Oral Surgery: No Thoracic Surgery: No Other Surgery: Yes Social History Alcohol Use: Yes (DAILY) Tobacco Use: Yes (one pack per day) Substance Use: No (PT DENIES ) Allergies-Medications (Allergen,Severity, Reaction): Coded Allergies: cefazolin (Verified Allergy, Severe, Itching, 06/24/17) tomato (Verified Allergy, Severe, HIVES, 06/24/17) ketorolac (Verified Adverse Reaction, Intermediate, HIVES, 06/24/17) tramadol (Verified Adverse Reaction, Intermediate, HIVES, 06/24/17) *MDRO Multi-Drug Resistant Organism (Verified Adverse Reaction, Unknown, ) MRSA (back wound) - 06/2015 MRSA (leg wound) - 08/2015 MRSA (knee wound) - 03/2016 MRSA (hand) - 05/12/17 Reported Meds & Prescriptions Reported Meds & Active Scripts Active Reported [place] Carbonate 150 Mg Cap 100 Mg PO BID Review of Systems Except as stated in HPI: all other systems reviewed are Neg General / Constitutional: No: Fever, Chills Eyes: No: Blurred Vision, Photophobia HENT: No: Headaches, Neck Pain Cardiovascular: No: Chest Pain or Discomfort, Palpitations Respiratory: No: Cough, Shortness of Breath Gastrointestinal: No: Nausea, Vomiting Musculoskeletal: No: Weakness, Pain Neurologic: Positive: Seizures, No: Weakness, Syncope, Headache, Incontinence Psychiatric: Positive: Substance Abuse, No: Depression, Suicidal Ideations Physical Exam Narrative GENERAL: Well-developed well-nourished male in no acute rest her distress. SKIN: Focused skin assessment warm/dry. HEAD: Atraumatic. Normocephalic. EYES: Pupils equal and round. No scleral icterus. No injection or drainage. ENT: No nasal bleeding or discharge. Mucous membranes pink and moist. No [place]. NECK: Trachea midline. Supple. Full range of motion.. CARDIOVASCULAR: Regular rate and rhythm. No murmur appreciated. RESPIRATORY: No accessory muscle use. Clear to auscultation. Breath sounds equal bilaterally. GASTROINTESTINAL: Abdomen soft, non-tender, nondistended. Hepatic and splenic margins not palpable. MUSCULOSKELETAL: No obvious deformities. No clubbing. No cyanosis. No edema. NEUROLOGICAL: Awake and alert. No obvious cranial nerve deficits. Motor grossly within normal limits. Slight slurred speech. Data Data Last Documented VS Vital Signs Date Time Temp Pulse Resp B/P (MAP) Pulse Ox O2 Delivery O2 Flow Rate FiO2 07/13/17 17:33 72 16 126/81 (96) 95 Nasal Cannula 2.00 07/13/17 16:35 98.3 Orders Orders Complete Blood Count With Diff (07/13/17 17:00) Alcohol (Ethanol) (07/13/17 17:00) Drug Screen, Random Urine (07/13/17 17:00) Ct Brain W/O Iv Contrast(Rout) (07/13/17 ) Blood Glucose (07/13/17 17:00) Ecg Monitoring (07/13/17 17:00) Iv Access Insert/Monitor (07/13/17 17:00) Oximetry (07/13/17 17:00) Comprehensive Metabolic Panel (07/13/17 17:00) Sodium Chloride 0.9% Flush (Ns Flush) (07/13/17 17:00) Labs Laboratory Tests Test 07/13/17 17:35 White Blood Count 7.1 TH/MM3 Red Blood Count 5.55 MIL/MM3 Hemoglobin 17.8 GM/DL Hematocrit 51.6 % Mean Corpuscular Volume 93.0 FL Mean Corpuscular Hemoglobin 32.1 PG Mean Corpuscular Hemoglobin Concent 34.5 % Red Cell Distribution Width 13.3 % Platelet Count 232 TH/MM3 Mean Platelet Volume 7.8 FL Neutrophils (%) (Auto) 37.9 % Lymphocytes (%) (Auto) 52.2 % Monocytes (%) (Auto) 5.9 % Eosinophils (%) (Auto) 2.6 % Basophils (%) (Auto) 1.4 % Neutrophils # (Auto) 2.7 TH/MM3 Lymphocytes # (Auto) 3.7 TH/MM3 Monocytes # (Auto) 0.4 TH/MM3 Eosinophils # (Auto) 0.2 TH/MM3 Basophils # (Auto) 0.1 TH/MM3 CBC Comment DIFF FINAL Differential Comment Blood Urea Nitrogen 5 MG/DL Creatinine 0.66 MG/DL Random Glucose 77 MG/DL Total Protein 7.0 GM/DL Albumin 3.8 GM/DL Calcium Level 7.5 MG/DL Alkaline Phosphatase 80 U/L Aspartate Amino Transf (AST/SGOT) 107 U/L Alanine Aminotransferase (ALT/SGPT) 126 U/L Total Bilirubin 0.3 MG/DL Sodium Level 138 MEQ/L Potassium Level 3.6 MEQ/L Chloride Level 105 MEQ/L Carbon Dioxide Level 22.6 MEQ/L Anion Gap 10 MEQ/L Estimat Glomerular Filtration Rate 135 ML/MIN Ethyl Alcohol Level 266 MG/DL [facility] Medical Decision Making Medical Screen Exam Complete: Yes Emergency Medical Condition: Yes Differential Diagnosis Seizure versus syncope versus metabolic derangement versus alcohol intoxication Narrative Course 37-year-old male presents today after having a reported seizure. The patient is awake alert and answering questions. He states he's had a lot to drink. Despite that he reportedly had a seizure. The patient is appropriate and able to make appropriate decisions. Apparently his girlfriend who appeared intoxicated was in the room and was asked to leave. When the security went to ask her to leave the patient stated, "if she leaves, I'll leave". The patient signed out AGAINST MEDICAL ADVICE. He was awake and alert and able to answer questions appropriately. He was made aware that he could return at any time. Diagnosis Primary Impression: reported seizure Additional Impressions: Alcohol abuse Left against medical advice Admitting Information Admitting Physician Requests: Admit Disposition: 07 AGAINST MEDICAL ADVICE Condition: Stable Jason Grey MD Jul 13, 2017 17:52
[2017-07-13 18:18] LABS: ALKALINE PHOSPHATASE 80 U/L (45-117); TOTAL BILIRUBIN ADULT 0.3 MG/DL (0.2-1.0)
[2017-07-13 18:23] LABS: ALT (GPT) 126 U/L (12-78); ANION GAP 10 MEQ/L (5-15); AST (GOT) 107 U/L (15-37); BICARBONATE 22.6 MEQ/L (21.0-32.0); BLOOD UREA NITROGEN 5 MG/DL (7-18); CHLORIDE 105 MEQ/L (98-107); GLOMERULAR FILTRATION RATE 135 ML/MIN (>89); POTASSIUM 3.6 MEQ/L (3.5-5.1); SODIUM (NA) 138 MEQ/L (136-145)
[2017-07-13 18:24] LABS: ALCOHOL 266 MG/DL (0-5)
[2017-07-14] MEDS ORDERED: MIDAZOLAM HCL 2 MG/2 ML VIAL ONE (11:54)
== END 2017-07-13 18:39 | disposition left against medical advice (07) ==
LOC: NEPE 16:25
DX: R56.9 Unspecified convulsions (principal); Z53.21 Procedure and treatment not carried out due to patient leaving prior to being seen by health care provider; F10.10 Alcohol abuse, uncomplicated; J45.909 Unspecified asthma, uncomplicated; Z72.0 Tobacco use
CPT/HCPCS: 70450; 80053; 80307; 85025; J2250; J3010

== ENCOUNTER 2017-07-13 22:19 | Emergency (ER) | payer SELFPAY ==
[~2017-07-13] VITALS: Ht 177.8 cm; Wt 78.0 kg
[2017-07-13 22:29] VITALS: BP 130/74; PULSE 80; RESP 16; TEMP 97.6; O2SAT 98
[2017-07-14] MEDS ORDERED: SODIUM CHLORIDE 0.9% FLUSH 10 ML FLUSH IVF PRN (00:30)
[2017-07-14] MEDS ORDERED: ONDANSETRON HCL 4 MG/2 ML VIAL IV PUSH PRN (00:30)
[2017-07-14] MEDS ORDERED: FLUMAZENIL 0.5 MG/5 ML VIAL IV PUSH PRN (00:30)
[2017-07-14] MEDS ORDERED: LORazepam 1 MG TAB PO PRN (00:30)
[2017-07-14] MEDS ORDERED: ASPIRIN 81 MG CHEW TAB PO ONE (00:30)
[2017-07-14] MEDS ORDERED: SODIUM CHLORID 0.9% 500 ML INJ 500 ML IV ONE (00:30)
[2017-07-14] MEDS ORDERED: LORazepam 2 MG TAB PO PRN (00:30)
[2017-07-14] MEDS ORDERED: LORazepam 2 MG/ML VIAL IV PUSH PRN ×4 (00:30)
--- NOTE | 2017-07-14 00:33 | PD ---
HPI Chief Complaint: Chest Pain Time Seen by Provider: 00:24 Travel History International Travel<30 days: No Contact w/Intl Traveler<30days: No Traveled to known affect area: No History of Present Illness HPI 37-year-old male with history of asthma, bipolar disorder, absence of use, alcohol dependency, presents to emergency department for evaluation. Patient states that he had a seizure this morning around 9 AM. He has no history of seizures but states his girlfriend told him he looked like he was having a seizure. He did not get evaluated at that time. He states during that incident , his girlfriend did chest compressions, thinking that he may be , yet when he woke up he still did not come for evaluation. Patient presents with left- sided chest pain that does not radiate anywhere. It been there since following his incident this morning. Denies any shortness of breath. Patient has no other symptoms to report. PFSH Past Medical History Hx Anticoagulant Therapy: No Asthma: Yes Bipolar Disorder: Yes Anxiety: Yes Depression: No Cardiovascular Problems: No Cerebrovascular Accident: No Diminished Hearing: No Endocrine: No Gastrointestinal Disorders: No Genitourinary: No Headaches: No Hepatitis: Yes (C) Immune Disorder: No Implanted Vascular Access Dvce: No Musculoskeletal: No Neurologic: No Psychiatric: Yes Reproductive: No Respiratory: Yes (smoker, denies asthma. pt used to have inhaler-denies further use) Immunizations Current: Yes Migraines: No Radiation Therapy: No Seizures: No Past Surgical History Abdominal Surgery: No Cardiac Surgery: No Ear Surgery: No Endocrine Surgery: No Eye Surgery: No Genitourinary Surgery: No Gynecologic Surgery: No Hysterectomy: No Neurologic Surgery: No Oral Surgery: No Thoracic Surgery: No Other Surgery: Yes Social History Alcohol Use: Yes (DAILY) Tobacco Use: Yes (one pack per day) Substance Use: No (PT DENIES ) Allergies-Medications (Allergen,Severity, Reaction): Coded Allergies: cefazolin (Verified Allergy, Severe, Itching, 07/14/17) tomato (Verified Allergy, Severe, HIVES, 07/14/17) ketorolac (Verified Adverse Reaction, Intermediate, HIVES, 07/14/17) tramadol (Verified Adverse Reaction, Intermediate, HIVES, 07/14/17) *MDRO Multi-Drug Resistant Organism (Verified Adverse Reaction, Unknown, ) MRSA (back wound) - 06/2015 MRSA (leg wound) - 08/2015 MRSA (knee wound) - 03/2016 MRSA (hand) - 05/12/17 Reported Meds & Prescriptions Reported Meds & Active Scripts Active Reported [place] Carbonate 150 Mg Cap 100 Mg PO BID Review of Systems Except as stated in HPI: all other systems reviewed are Neg Physical Exam Narrative GENERAL: Well-nourished, well-developed male patient, in no acute distress SKIN: Focused skin assessment warm/dry. HEAD: Normocephalic. Atraumatic EYES: No scleral icterus. No injection or drainage. ENT: Mucosa pink and moist. No erythema or exudates. No uvular edema. No uvular , palatal, or tonsillar deviation. Airway patent. Nasal turbinates appear normal without nasal blood, purulent drainage or septal hematoma. NECK: Supple, trachea midline. No JVD or lymphadenopathy. CARDIOVASCULAR: Regular rate and rhythm without murmurs, gallops, or rubs. RESPIRATORY: Breath sounds coarse, equal bilaterally. No accessory muscle use. GASTROINTESTINAL: Abdomen soft, non-tender, nondistended. MUSCULOSKELETAL: No cyanosis, or edema. BACK: Nontender without obvious deformity. No CVA tenderness. Data Data Last Documented VS Vital Signs Date Time Temp Pulse Resp B/P (MAP) Pulse Ox O2 Delivery O2 Flow Rate FiO2 07/14/17 01:27 78 16 130/70 (90) 98 07/14/17 01:27 Room Air 07/14/17 01:27 98.6 Orders Orders Electrocardiogram (07/14/17 00:30) Ckmb (Isoenzyme) Profile (07/14/17 00:30) Complete Blood Count With Diff (07/14/17 00:30) Comprehensive Metabolic Panel (07/14/17 00:30) Magnesium (Mg) (07/14/17 00:30) Prothrombin Time / Inr (Pt) (07/14/17 00:30) Act Partial Throm Time (Ptt) (07/14/17 00:30) Troponin I (07/14/17 00:30) Lipase (07/14/17 00:30) Chest, Single Ap (07/14/17 00:30) Ecg Monitoring (07/14/17 00:30) Bilateral Bp Monitoring (07/14/17 00:30) Iv Access Insert/Monitor (07/14/17 00:30) Oximetry (07/14/17 00:30) Oxygen Administration (07/14/17 00:30) Aspirin Chew (Aspirin Chew) (07/14/17 00:30) Sodium Chloride 0.9% Flush (Ns Flush) (07/14/17 00:30) Sodium Chlorid 0.9% 500 Ml Inj (Ns 500 M (07/14/17 00:30) Drug Screen, Random Urine (07/14/17 00:30) Alcohol (Ethanol) (07/14/17 00:30) Diet Regular Basic (07/14/17 Breakfast) Alcohol Withdrawal Asmt-Ciwa ONCE (07/14/17 00:30) Ondansetron Inj (Zofran Inj) (07/14/17 00:30) Flumazenil Inj (Romazicon Inj) (07/14/17 00:30) Lorazepam (Ativan) (07/14/17 00:30) Lorazepam Inj (Ativan Inj) (07/14/17 00:30) Lorazepam (Ativan) (07/14/17 00:30) Lorazepam Inj (Ativan Inj) (07/14/17 00:30) Lorazepam Inj (Ativan Inj) (07/14/17 00:30) Lorazepam Inj (Ativan Inj) (07/14/17 00:30) Ct Brain W/O Iv Contrast(Rout) (07/14/17 ) CKMB (07/14/17 01:45) CKMB% (07/14/17 01:45) Troponin I (07/14/17 04:32) Electrocardiogram (07/14/17 ) Blood Glucose (07/14/17 05:35) Labs Laboratory Tests Test 07/14/17 01:45 07/14/17 03:45 07/14/17 04:00 07/14/17 04:45 Blood Urea Nitrogen 7 MG/DL Creatinine 0.80 MG/DL Random Glucose 65 MG/DL Total Protein 8.7 GM/DL Albumin 4.4 GM/DL Calcium Level 8.1 MG/DL Magnesium Level 2.4 MG/DL Alkaline Phosphatase 86 U/L Aspartate Amino Transf (AST/SGOT) 155 U/L Alanine Aminotransferase (ALT/SGPT) 160 U/L Total Bilirubin 0.5 MG/DL Sodium Level 139 MEQ/L Potassium Level 4.8 MEQ/L Chloride Level 104 MEQ/L Carbon Dioxide Level 25.1 MEQ/L Anion Gap 10 MEQ/L Estimat Glomerular Filtration Rate 108 ML/MIN Total Creatine Kinase 369 U/L Creatine Kinase MB 2.1 NG/ML Creatine Kinase MB % 0.6 % Troponin I LESS THAN 0.02 NG/ML LESS THAN 0.02 NG/ML Lipase 117 U/L Ethyl Alcohol Level 213 MG/DL Urine Opiates Screen NEG Urine Barbiturates Screen NEG Urine Amphetamines Screen NEG Urine Benzodiazepines Screen POS Urine Cocaine Screen NEG Urine Cannabinoids Screen NEG Prothrombin Time 12.3 SEC Prothromb Time International Ratio 1.1 RATIO Activated Partial Thromboplast Time 32.4 SEC MDM Medical Decision Making Medical Screen Exam Complete: Yes Emergency Medical Condition: Yes Medical Record Reviewed: Yes Differential Diagnosis Chest wall pain versus pleuritic pain versus contusion versus fracture versus ACS versus substance abuse versus electrolyte abnormality Narrative Course 37-year-old male presents to emergency department for evaluation. Patient appears without distress. His vital signs are stable. Initial EKG is without acute concern. Laboratory Tests Test 07/14/17 01:45 07/14/17 03:45 07/14/17 04:00 07/14/17 04:45 Blood Urea Nitrogen 7 MG/DL Creatinine 0.80 MG/DL Random Glucose 65 MG/DL Total Protein 8.7 GM/DL Albumin 4.4 GM/DL Calcium Level 8.1 MG/DL Magnesium Level 2.4 MG/DL Alkaline Phosphatase 86 U/L Aspartate Amino Transf (AST/SGOT) 155 U/L Alanine Aminotransferase (ALT/SGPT) 160 U/L Total Bilirubin 0.5 MG/DL Sodium Level 139 MEQ/L Potassium Level 4.8 MEQ/L Chloride Level 104 MEQ/L Carbon Dioxide Level 25.1 MEQ/L Anion Gap 10 MEQ/L Estimat Glomerular Filtration Rate 108 ML/MIN Total Creatine Kinase 369 U/L Creatine Kinase MB 2.1 NG/ML Creatine Kinase MB % 0.6 % Lipase 117 U/L Ethyl Alcohol Level 213 MG/DL Urine Opiates Screen NEG Urine Barbiturates Screen NEG Urine Amphetamines Screen NEG Urine Benzodiazepines Screen POS Urine Cocaine Screen NEG Urine Cannabinoids Screen NEG Prothrombin Time 12.3 SEC Prothromb Time International Ratio 1.1 RATIO Activated Partial Thromboplast Time 32.4 SEC Troponin I LESS THAN 0.02 NG/ML Last Impressions Chest X-Ray 9/18/17 0030 Signed Impressions: Service Date/Time: Friday, July 14, 2017 00:46 - CONCLUSION: Normal examination. Wei Croft Jr., MD Head CT 07/14/17 0000 Signed Impressions: Service Date/Time: Friday, July 14, 2017 02:52 - CONCLUSION: 1. No acute intracranial abnormality. 2. Right maxillary sinus disease. Wei Croft Jr., MD I discussed the patient my attending physician. We'll do a delta troponin and repeat EKG. Patient is given food to help increase his blood glucose. He is counseled on substance abuse. Repeat troponin is less than 0.02. EKG is without acute change. He'll be discharged at this time. Diagnosis Primary Impression: Chest wall pain Additional Impressions: Substance abuse Transaminitis Referrals: Primary Care Physician Patient Instructions: Chest Wall Pain (ED), General Instructions Med/Other Pt SpecificInfo: No Change to Meds Disposition: 01 DISCHARGE HOME Condition: Stable Emani Shelton Jul 14, 2017 00:33
[2017-07-14 01:27] VITALS: BP_SYST 130; BP_DIAS 70; BP_DIAS 74; PULSE 78; PULSE 80; RESP 16; TEMP 98.6; O2SAT 98
--- NOTE | 2017-07-14 01:34 | RADRPT ---
EXAM DATE/TIME: 07/14/2017 00:46 [facility] COMPARISON: CHEST SINGLE AP, May 12, 2017, 23:49. INDICATIONS : Syncopal episode. MEDICAL HISTORY : Hepatitis C. Substance abuse SURGICAL HISTORY : None. ENCOUNTER: Initial ACUITY: 1 day PAIN SCORE: 0/10 LOCATION: Bilateral chest FINDINGS: A single view of the chest demonstrates the lungs to be symmetrically aerated without evidence of mas s, infiltrate or effusion. The cardiomediastinal contours are unremarkable. Osseous structures are intact. CONCLUSION: Normal examination. Wei Croft Jr., MD on July 14, 2017 at 1:33 Board Certified Radiologist. This report was verified electronically.
[2017-07-14 03:14] LABS: ALCOHOL 213 MG/DL (0-5); ALKALINE PHOSPHATASE 86 U/L (45-117); ALT (GPT) 160 U/L (12-78); ANION GAP 10 MEQ/L (5-15); AST (GOT) 155 U/L (15-37); BICARBONATE 25.1 MEQ/L (21.0-32.0); BLOOD UREA NITROGEN 7 MG/DL (7-18); CHLORIDE 104 MEQ/L (98-107); CREATINE KINASE 369 U/L (39-308); GLOMERULAR FILTRATION RATE 108 ML/MIN (>89); MAGNESIUM 2.4 MG/DL (1.5-2.5); POTASSIUM 4.8 MEQ/L (3.5-5.1); SODIUM (NA) 139 MEQ/L (136-145); TOTAL BILIRUBIN ADULT 0.5 MG/DL (0.2-1.0)
--- NOTE | 2017-07-14 03:28 | RADRPT ---
EXAM DATE/TIME: 07/14/2017 02:52 [facility] COMPARISON: CT BRAIN W/O CONTRAST, July 13, 2017, 17:15. INDICATIONS : Found passed out on ground. ETOH. RADIATION DOSE: 56.35 CTDIvol (mGy) MEDICAL HISTORY : Hepatitis C. Substance abuse. SURGICAL HISTORY : None. ENCOUNTER: Initial ACUITY: 1 day PAIN SCALE: Non-responsive LOCATION: cranial TECHNIQUE: Multiple contiguous axial images were obtained of the head. Using automated exposure control and adj ustment of the mA and/or kV according to patient size, radiation dose was kept as low as reasonably a chievable to obtain optimal diagnostic quality images. DICOM format image data is available electro nically for review and comparison. FINDINGS: CEREBRUM: The ventricles are normal for age. No evidence of midline shift, mass lesion, hemorrhage or acute in farction. No extra-axial fluid collections are seen. POSTERIOR FOSSA: The cerebellum and brainstem are intact. The 4th ventricle is midline. The cerebellopontine angle i s unremarkable. EXTRACRANIAL: The visualized portion of the orbits is intact. The visualized portions of the right maxillary sinus show mucosal thickening without air-fluid level. SKULL: The calvaria is intact. No evidence of skull fracture. CONCLUSION: 1. No acute intracranial abnormality. 2. Right maxillary sinus disease. Wei Croft Jr., MD on July 14, 2017 at 3:25 Board Certified Radiologist. This report was verified electronically.
[2017-07-14 03:30] LABS: CKMB 2.1 NG/ML (0.5-3.6)
[2017-07-14 04:30] LABS: APTT (PATIENT) 32.4 SEC (24.3-30.1); INTERNATIONAL NORMALIZED RATIO 1.1 RATIO; PROTHROMBIN TIME - PATIENT 12.3 SEC (9.8-11.6)
--- NOTE | 2017-07-14 11:56 | EKG ---
Date Performed: 07/14/2017 Time Performed: 05:09:47 PTAGE: 37 years EKG: Sinus rhythm POSSIBLE LATERAL MYOCARDIAL INFARCTION ABNORMAL ECG PREVIOUS TRACING : 07/28/2015 19.34 Compared to previous tracing, possible high lateral infarct pattern is now evident. DOCTOR: Steve Hernández Interpretating Date/Time 07/14/2017 11:54:17
--- NOTE | 2017-07-14 14:20 | EKG ---
Date Performed: 07/14/2017 Time Performed: 00:32:47 PTAGE: 37 years EKG: Sinus rhythm WITH SHORT NC INTERVAL NONSPECIFIC INTRAVENTRICULAR CONDUCTION DELAY BORDERLINE ECG PREVIOUS TRACING : 07/28/2015 19.34 No significant change from previous tracing noted. DOCTOR: Steve Hernández Interpretating Date/Time 07/14/2017 14:20:11
== END 2017-07-14 07:47 | disposition home or self-care (01) ==
LOC: NEPD 22:19
DX: R07.89 Other chest pain (principal); F19.10 Other psychoactive substance abuse, uncomplicated; R74.0 Nonspecific elevation of levels of transaminase and lactic acid dehydrogenase [LDH]; R94.31 Abnormal electrocardiogram [ECG] [EKG]; F17.200 Nicotine dependence, unspecified, uncomplicated; Z79.899 Other long term (current) drug therapy; Z87.09 Personal history of other diseases of the respiratory system; Z86.59 Personal history of other mental and behavioral disorders; Z86.19 Personal history of other infectious and parasitic diseases
CPT/HCPCS: 70450; 71010; 80053; 80307; 82550; 82552; 83690; 83735; 84484; 85610; 85730; 93005; 96360; 99285; J7040